=== PATIENT | male | born 1945 | race Asian ===

== ENCOUNTER 2020-10-23 11:53 | Inpatient (IN) | payer MEDICARE, OTHER ==
[~2020-10-23] VITALS: Ht 172.7 cm; Wt 59.0 kg
--- NOTE | 2020-10-23 12:05 | NUR ---
DR. COLLAZO @ BS FOR EVAL.
[2020-10-23] MEDS ORDERED: ACETAMINOPHEN 650 MG/SUPP.RECT RC ONE ×2 (12:30→12:40)
--- NOTE | 2020-10-23 12:36 | NUR ---
BIBRA60 FROM SNF FOR LOW O2 SAT 92-93% ON 6LPM PER EMS. +COVID 10/19/20. PT NON VERBAL, SOB. PLACED ON TRUCK MECHANIC APPRENTICE, SR. PLACED ON 02 4L, O2 SAT 95%. TEMP 100 RECTAL, AWARE. WILL CONT TO MONITOR.
[2020-10-23 12:45] LABS: ABG OXYGEN SATURATION 86.9 % (92.0-98.5); ABG PCO2 27.9 mmHg (35.0-45.0); ABG PH 7.421 (7.350-7.450); ABG PO2 54.6 mmHg (75.0-100.0); AaDO2 198.5 mmHg; COHb 0.7 % (0.5-1.5); MetHb 0.4 % (0.0-1.5); O2Hb 85.9 % (94.0-97.0); SITE, ABG Right Radial; VENT MODE, BG NC 5 L
[2020-10-23 12:50] LABS: BASOPHILS # (AUTO) 0.1 /CMM (0.0-0.2); BASOPHILS % (AUTO) 0.6 % (0.0-2.0); HEMATOCRIT 50 % (39-51); HEMOGLOBIN 16.5 g/dL (13.5-17.5); LYMPHOCYTES # (AUTO) 0.6 /CMM (0.8-4.8); MEAN CORPUSCULAR HGB CONC 33 g/dl (31.0-36.0); MEAN CORPUSCULAR VOLUME 87 fL (80-96); MONOCYTES # (AUTO) 0.5 /CMM (0.1-1.30); MONOCYTES % (AUTO) 3.6 % (2.0-12.0); NEUTROPHILS # (AUTO) 12.6 /CMM (1.8-8.9); NEUTROPHILS % (AUTO) 91.8 % (43.0-81.0); PLATELET COUNT (AUTO) 398 /CMM (150-450); RED BLOOD CELL COUNT(AUTO) 5.68 MIL/uL (4.5-6.0); WHITE BLOOD COUNT (AUTO) 13.8 K/uL (4.3-11.0)
[2020-10-23] MEDS ORDERED: FENO160T PO (12:51)
[2020-10-23] MEDS ORDERED: INSU100I4 SQ (12:51)
[2020-10-23] MEDS ORDERED: GLIP10TA11 PO (12:51)
[2020-10-23] MEDS ORDERED: OMEG100037 PO (12:51)
[2020-10-23] MEDS ORDERED: DORZ10DR13 EACHEYE (12:51)
[2020-10-23] MEDS ORDERED: INSU100I24 SQ ×2 (12:51)
[2020-10-23] MEDS ORDERED: METO50TA16 PO (12:51)
[2020-10-23] MEDS ORDERED: GLUC1KIT IJ (12:51)
[2020-10-23] MEDS ORDERED: DOCU-141 PO (12:51)
[2020-10-23] MEDS ORDERED: ACET325T53 PO (12:51)
[2020-10-23] MEDS ORDERED: AMLO10TA4 PO (12:51)
[2020-10-23] MEDS ORDERED: SERT25TA PO (12:51)
[2020-10-23] MEDS ORDERED: CHOL100045 PO (12:51)
[2020-10-23] MEDS ORDERED: TAMS-12 PO (12:51)
[2020-10-23] MEDS ORDERED: LISI-659 PO (12:51)
[2020-10-23] MEDS ORDERED: LATA2.5D15 OP (12:51)
[2020-10-23] MEDS ORDERED: GABA100C PO (12:51)
[2020-10-23] MEDS ORDERED: DEXAMETHASONE SOD PHOSPHATE 4 MG in IV D5W 50 ML IV ONE (13:00)
[2020-10-23 13:02] LABS: CALCIUM, SERUM 9.6 mg/dL (8.5-10.1); CARBON DIOXIDE 23 mmol/L (21-32); CHLORIDE 95 mmol/L (98-107); CREATININE 1.4 mg/dL (0.6-1.3); GLUCOSE 266 mg/dL (74-106); POTASSIUM 4.5 mmol/L (3.5-5.1); SODIUM SERUM 129 mmol/L (136-145); UREA NITROGEN, BLOOD 39 mg/dL (7-18)
[2020-10-23 13:13] LABS: BILIRUBIN,URINE SMALL (NEGATIVE); BLOOD, URINE TRACE-INTA Ery/uL (NEGATIVE); COLOR,URINE DARK YELLOW (YELLOW); LEUKOCYTE ESTERASE ,URINE NEGATIVE (NEGATIVE); NITRITE, URINE NEGATIVE (NEGATIVE); PROTEIN,URINE 100 mg/dl (NEGATIVE); UGLUCOSE 250 MG/DL mg/dL (NEGATIVE)
[2020-10-23 13:17] LABS: ALANINE AMINOTRANSFERASE 24 U/L (12-78); ALBUMIN 2.9 g/dL (3.4-5.0); ALKALINE PHOSPHATASE 65 U/L (46-116); ASPARTATE AMINOTRANSFERASE 38 U/L (15-37); B-TYPE NATRIURETIC PEPTIDE 699 PG/ML (0-125); TOTAL PROTEIN, SERUM 8.5 g/dL (6.4-8.2)
[2020-10-23 13:19] LABS: CREATINE KINASE, TOTAL 102 U/L (39-308); FERRITIN 697 ng/mL (8-388)
[2020-10-23 13:23] LABS: D-DIMER 1.17 mg/L(FEU (0.17-0.50)
[2020-10-23] MEDS ORDERED: PIPERACILLIN /TAZOBACTAM 3.375 G in IV D5W 50 ML IV ONE (13:30)
[2020-10-23] MEDS ORDERED: AZITHROMYCIN 500 MG in IV D5W 250 ML IV ONE (13:30)
[2020-10-23 13:41] LABS: BACTERIA,URINE Few /HPF (None Seen); RBC,URINE 0-2 /HPF (0-2); SQUAMOUS EPITHELIAL CELL,UR None Seen /HPF (None Seen); WBC,URINE 0-2 /HPF (0-3)
[2020-10-23 13:43] LABS: C-REACTIVE PROTEIN 36.4 mg/dL (0.0-0.9)
[2020-10-23] MEDS ORDERED: DEXAMETHASONE SOD PHOSPHATE 4 MG/ML VIAL ONE (14:12)
--- NOTE | 2020-10-23 14:28 | NUR ---
PT ON HI JESSICA OXYGEN 30ML 70%. O2 SAT 96%. PT STABLE, RR EVEN & UNLABORED. NO ACCESSORY MUSCLE USAGE. PT COMFORTABLY SLEEPING & WILL CONT TO MONITOR.
[2020-10-23] MEDS ORDERED: DEXAMETHASONE SOD PHOSPHATE 4 MG/ML VIAL IV ONE (14:30)
--- NOTE | 2020-10-23 14:45 | NUR ---
CALLED NURSING SUP FOR ICU BED.
[2020-10-23] MEDS ORDERED: ZOLPIDEM TARTRATE 5 MG TABLET PO PRN (16:30)
[2020-10-23] MEDS ORDERED: HYDROCODONE/APAP 5/325MG TABLET PO PRN (16:30)
[2020-10-23] MEDS ORDERED: MAGNESIUM HYDROXIDE 30 ML UDC PO PRN (16:30)
[2020-10-23] MEDS ORDERED: ACETAMINOPHEN 325 MG TABLET PO PRN (16:30)
[2020-10-23] MEDS ORDERED: Z GUARD REMEDY 2 OZ OINT TP PRN (16:30)
[2020-10-23] MEDS ORDERED: ONDANSETRON HCL/PF 4 MG/2 ML VIAL IVP PRN (16:30)
[2020-10-23] MEDS ORDERED: MAG HYDROX/AL HYDROX/SIMETH 30 ML UDC PO PRN (16:30)
[2020-10-23] MEDS ORDERED: PIPERACILLIN /TAZOBACTAM 3.375 G VIAL IV ONE (16:32)
--- NOTE | 2020-10-23 16:51 | NUR ---
PT RESTING, EASILY AWAKEN BY VERBAL STIMULI & WILL GO BACK TO SLEEP. RR EVEN & UNLABORED. ON TELE NSR. WILL CONT TO MONITOR.
[2020-10-23] MEDS: DOCUSATE SODIUM 100 MG CAPSULE PO SCH (17:00)
--- NOTE | 2020-10-23 20:54 | NUR ---
REPORT GIVEN TO JENNA DOTSON FOR FLEX.
[2020-10-23] MEDS: Fenofibrate 48 MG TABLET PO SCH (22:00)
[2020-10-24] VITALS: BP 132/82
[2020-10-24] MEDS: GABAPENTIN 100 MG CAPSULE PO SCH ×3 (02:17→19:06)
[2020-10-24] MEDS: TAMSULOSIN 0.4 MG CAP.SR.24H PO SCH ×2 (02:18→21:26)
[2020-10-24] MEDS: LATANOPROST EYE DROP 0.005% 2.5 ML BOTTLE OP SCH ×2 (02:18→21:53)
[2020-10-24] MEDS: IPRATROPIUM/ALBUTEROL INHALER IH SCH ×4 (02:19→19:06)
[2020-10-24] MEDS: APIXABAN 2.5 MG TABLET PO SCH ×3 (02:32→20:52)
[2020-10-24 04:00] VITALS: BP 126/75
--- NOTE | 2020-10-24 04:33 | NUR ---
RN notes Admitted a 75 year old macanese male from ER via stretcher with Diagnosis of Covid 19/acute hypoxic respiratory failure. Alert and oriented, verbally able to communicate needs. Speech was slow. Takes a long time to answer a question. Cooperative. No skin issues. On 30lpm high flow at 70% tolerating well O2sat of 95%. No complaint of pain or discomfort. Needs attended. Kept clean and dry. Will endorse to next shift for continuity of care.
[2020-10-24 07:55] LABS: BASOPHILS % (AUTO) 0.1 % (0.0-2.0); HEMATOCRIT 41 % (39-51); HEMOGLOBIN 13.9 g/dL (13.5-17.5); LYMPHOCYTES # (AUTO) 0.4 /CMM (0.8-4.8); LYMPHOCYTES % (AUTO) 3.1 % (20.0-44.0); MEAN CORPUSCULAR HGB CONC 34 g/dl (31.0-36.0); MEAN CORPUSCULAR VOLUME 87 fL (80-96); MONOCYTES # (AUTO) 0.6 /CMM (0.1-1.30); MONOCYTES % (AUTO) 4.5 % (2.0-12.0); NEUTROPHILS # (AUTO) 11.5 /CMM (1.8-8.9); NEUTROPHILS % (AUTO) 92.3 % (43.0-81.0); PLATELET COUNT (AUTO) 392 /CMM (150-450); RED BLOOD CELL COUNT(AUTO) 4.77 MIL/uL (4.5-6.0); WHITE BLOOD COUNT (AUTO) 12.5 K/uL (4.3-11.0)
[2020-10-24 08:00] VITALS: BP 148/88
--- NOTE | 2020-10-24 08:00 | NUR ---
insurance plan specialist AM notes Received pt alert,awake and confused, verbally able to communicate needs. Speech was slow. Takes a long time to answer a question. Cooperative. No skin issues. On 30lpm high flow at 70% tolerating well O2sat of 98%. Pt has episodes of pulling out his O2 tubing tending to desatuirate to 85% inspite of explaining the risks and benefits. Pt continues to pull out his O2. Reapply pt's O2 tubing as needed.No complaints of pain or discomfort. Turned every two hrs.Kept clean and dry.
[2020-10-24 08:42] LABS: CALCIUM, SERUM 8.8 mg/dL (8.5-10.1); CARBON DIOXIDE 24 mmol/L (21-32); CHLORIDE 97 mmol/L (98-107); CREATININE 1.4 mg/dL (0.6-1.3); GLUCOSE 295 mg/dL (74-106); MAGNESIUM 2.1 mg/dL (1.8-2.4); PHOSPHORUS 4.3 mg/dL (2.5-4.9); POTASSIUM 4.5 mmol/L (3.5-5.1); SODIUM SERUM 132 mmol/L (136-145); UREA NITROGEN, BLOOD 50 mg/dL (7-18)
[2020-10-24 09:19] LABS: CHOLESTEROL 124 mg/dL (<200); HDL CHOLESTEROL 29 mg/dL (40-60); LDL 69 mg/dL (0-99); THYROID STIMULATING HORMONE 0.303 uIU/mL (0.358-3.74); TRIGLYCERIDES 193 mg/dL (30-150)
[2020-10-24] MEDS: glipiZIDE 10 MG TABLET PO SCH ×2 (11:17→19:05)
[2020-10-24] MEDS: SERTRALINE HCL 25 MG TABLET PO SCH (11:17)
[2020-10-24] MEDS: CHOLECALCIFEROL 1,000 UNIT TABLET (VIT D3) PO SCH (11:17)
[2020-10-24] MEDS: DOCUSATE SODIUM 100 MG CAPSULE PO SCH ×2 (11:17→19:05)
[2020-10-24] MEDS: DEXAMETHASONE SOD PHOSPHATE 4 MG/ML VIAL IV SCH (11:18)
[2020-10-24] MEDS: AMLODIPINE BESYLATE 10 MG TABLET PO SCH (11:18)
[2020-10-24] MEDS: TIMOLOL MAL/DORZOLAM HCL OPHTH 10 ML BOTTLE EACHEYE SCH ×2 (11:31→21:52)
[2020-10-24 12:00] VITALS: BP 151/83
[2020-10-24 12:59] LABS: C-REACTIVE PROTEIN 30.1 mg/dL (0.0-0.9)
[2020-10-24] MEDS: CEFEPIME 2 GM in IV D5W 100 ML IV SCH (14:42)
[2020-10-24 16:00] VITALS: BP 151/82
--- NOTE | 2020-10-24 19:00 | NUR ---
PT RESTING IN BED WITH O2 HIGH FLOW AT 30 LITERS.WITH O2 SAT 98%.DENIES ANY PAIN OR DISTRESS.TURNED EVERY TWO HRS.
--- NOTE | 2020-10-24 19:20 | NUR ---
RN NOTES RECEIVED PT IN BED RESTING COMFORTABLY, A/OX2-3, IN NO SIGN OF RESPIRATORY DISTRESS. ON 30L O2 VIA HIGH FLOW;NC ; TOLERATING WELL. IV SITE/ACCESS; PATENT AND FLUSHING WELL.BILATERAL SOFT WRIST RESTRAINTS IN PLACE, ASSESSED PER PROTOCOL.SAFETY MEASURES HAVE BEEN PROVIDED AND IMPLEMENTED. PATIENT BED ALARM IS ON. HEAD OF BED ELEVATED. BED IS LOCKED, IN LOWEST POSITION AND SIDE RAILS UP. CALL LIGHT WITHIN REACH OF THE PATIENT. APPLICABLE ISOLATION PRECAUTIONS IN PLACE. WILL CONTINUE TO MONITOR AND REASSESS FOR ANY CHANGES AND WILL CARRY OUT ANY ONGOING AND ACTIVE MD ORDER.
[2020-10-24 20:00] VITALS: BP 159/90
[2020-10-24] MEDS: DOXYCYCLINE HYCLATE (100 MG) 100 MG TABLET PO SCH (20:51)
--- NOTE | 2020-10-24 21:29 | NUR ---
RN NOTES TRICOR/ FENOFIBRATE NOT GIVEN BY PREVIOUS SHIFT, (10.23.2020), CANVAS CUTTER MADE AWARE. WILL ADMINISTER MEDS DUE FOR 2199 TODAY 10.24.2020.
[2020-10-24] MEDS: Fenofibrate 48 MG TABLET PO SCH (21:32)
--- NOTE | 2020-10-24 23:00 | NUR ---
RN NOTES NO CHANGE IN PATIENT CONDITION AT THIS TIME PATIENT VITALS STABLE, NO SIGNS OF ACUTE RESPIRATORY DISTRESS. DIGITAL EXPERIENCE MANAGER MADE AWARE. WILL CONTINUE TO MONITOR AND REASSESS FOR ANY CHANGES THROUGHOUT THE SHIFT.
[2020-10-25] VITALS: BP 157/84
[2020-10-25] MEDS: CEFEPIME 2 GM in IV D5W 100 ML IV SCH ×2 (02:36→13:54)
[2020-10-25 04:00] VITALS: BP 145/80
--- NOTE | 2020-10-25 04:00 | NUR ---
RN NOTES PATIENT REMAINS IN NO ACUTE RESPIRATORY DISTRESS AT THIS TIME, NO CHANGES TO CONDITION/STATUS. SPECIAL INVESTIGATION UNIT INVESTIGATOR WELL AWARE. WILL CONTINUE TO MONITOR AND REASSESS FOR ANY CHANGES THROUGHOUT THE SHIFT
--- NOTE | 2020-10-25 07:20 | NUR ---
RN NOTES PATIENT REMAINS IN ROOM IN NO SIGNS OF RESPIRATORY DISTRESS. PATIENT SATURATING 94% OF 02 AT THE TIME OF ENDORSEMENT/CHANGE OF SHIFT. VITAL SIGNS WNL. IV LINE MAINTAINED, INTACT, PATENT AND FLUSHING, NO SITE REDNESS OR INFILTRATION. SAFETY PRECAUTIONS IN PLACE AND COMFORT MEASURES RENDERED. BED IN LOWEST POSITION, CALL LIGHT WITHIN REACH, BREAKS ON, SIDE RAILS UP. ALL NEEDS ATTENDED, MEDICATIONS GIVEN SCHEDULED AND ORDERED ; SHIFT ASSESSMENT/BEDBATH/SKIN CARE DONE. PATIENT KEPT CLEAN AND DRY. WILL ENDORSE TO INCOMING SHIFT FOR FLEX WITH ALL PERTINENT INFO REGARDING PATIENT STATUS.
--- NOTE | 2020-10-25 07:30 | NUR ---
RN OPENING NOTE PATIENT CURRENTLY IN BED SLEEPING. A/O X1-2; CONFUSED. PATIENT CURRENTLY ON 30L HIGH LOW OXYGEN, OXYGEN SATURATION 97%. NO S/S OF DISTRESS AT THIS TIME. PATIENT DENIES PAIN AT THIS TIME. TELE MONITOR READING SHOWS SINUS RHYTHM AT THIS TIME. R AC 20 G INTACT AND PATENT, NO S/S OF INFECTION AT THIS TIME. ALL SAFETY MEASURES IN PLACE PER HOSPITAL POLICY. BED LOCKED IN LOWEST POSITION, CALL LIGHT WITHIN REACH. WILL CONTINUE TO MONITOR AND PROVIDE CARE.
[2020-10-25 08:00] VITALS: BP 151/92
[2020-10-25 08:19] LABS: BASOPHILS % (AUTO) 0.2 % (0.0-2.0); HEMATOCRIT 48 % (39-51); LYMPHOCYTES # (AUTO) 0.4 /CMM (0.8-4.8); LYMPHOCYTES % (AUTO) 3.2 % (20.0-44.0); MEAN CORPUSCULAR HGB CONC 34 g/dl (31.0-36.0); MEAN CORPUSCULAR VOLUME 87 fL (80-96); MONOCYTES # (AUTO) 0.8 /CMM (0.1-1.30); MONOCYTES % (AUTO) 6.8 % (2.0-12.0); NEUTROPHILS # (AUTO) 11.1 /CMM (1.8-8.9); NEUTROPHILS % (AUTO) 89.8 % (43.0-81.0); PLATELET COUNT (AUTO) 509 /CMM (150-450); RED BLOOD CELL COUNT(AUTO) 5.49 MIL/uL (4.5-6.0); WHITE BLOOD COUNT (AUTO) 12.4 K/uL (4.3-11.0)
[2020-10-25 08:54] LABS: D-DIMER 1.66 mg/L(FEU (0.17-0.50)
[2020-10-25] MEDS: TIMOLOL MAL/DORZOLAM HCL OPHTH 10 ML BOTTLE EACHEYE SCH ×2 (08:56→20:21)
[2020-10-25] MEDS: IPRATROPIUM/ALBUTEROL INHALER IH SCH ×3 (08:56→19:30)
[2020-10-25] MEDS: SERTRALINE HCL 25 MG TABLET PO SCH (08:57)
[2020-10-25] MEDS: GABAPENTIN 100 MG CAPSULE PO SCH ×2 (08:57→17:04)
[2020-10-25] MEDS: DOXYCYCLINE HYCLATE (100 MG) 100 MG TABLET PO SCH ×2 (08:57→20:22)
[2020-10-25] MEDS: DOCUSATE SODIUM 100 MG CAPSULE PO SCH ×2 (08:57→17:04)
[2020-10-25] MEDS: CHOLECALCIFEROL 1,000 UNIT TABLET (VIT D3) PO SCH (08:57)
[2020-10-25] MEDS: glipiZIDE 10 MG TABLET PO SCH ×2 (08:57→17:04)
[2020-10-25] MEDS: DEXAMETHASONE SOD PHOSPHATE 4 MG/ML VIAL IV SCH (08:57)
[2020-10-25] MEDS: AMLODIPINE BESYLATE 10 MG TABLET PO SCH (09:05)
[2020-10-25] MEDS: APIXABAN 2.5 MG TABLET PO SCH ×2 (09:06→20:25)
[2020-10-25 09:46] LABS: CALCIUM, SERUM 9.5 mg/dL (8.5-10.1); CARBON DIOXIDE 26 mmol/L (21-32); CHLORIDE 100 mmol/L (98-107); CREATININE 1.5 mg/dL (0.6-1.3); MAGNESIUM 2.3 mg/dL (1.8-2.4); PHOSPHORUS 2.9 mg/dL (2.5-4.9); POTASSIUM 4.2 mmol/L (3.5-5.1); SODIUM SERUM 132 mmol/L (136-145); UREA NITROGEN, BLOOD 50 mg/dL (7-18)
[2020-10-25 09:50] LABS: GLUCOSE 371 mg/dL (74-106)
[2020-10-25 10:56] LABS: CREATINE KINASE, TOTAL 262 U/L (39-308); FERRITIN 779 ng/mL (8-388)
[2020-10-25 12:00] VITALS: BP 144/95
[2020-10-25 16:00] VITALS: BP 149/87
--- NOTE | 2020-10-25 18:54 | NUR ---
RN CLOSING NOTE PATIENT CURRENTLY IN BED, RESTING. A/O X1-2; CONFUSED. PATIENT CURRENTLY ON 30L HIGH LOW OXYGEN, OXYGEN SATURATION 98%. NO S/S OF DISTRESS AT THIS TIME. PATIENT DENIES PAIN AT THIS TIME. TELE MONITOR READING SHOWS SINUS RHYTHM AT THIS TIME. R AC 20 G INTACT AND PATENT, NO S/S OF INFECTION AT THIS TIME. ALL SAFETY MEASURES IN PLACE PER HOSPITAL POLICY. BED LOCKED IN LOWEST POSITION, CALL LIGHT WITHIN REACH. WILL ENDORSE TO DRY CELL AND BATTERY ASSEMBLER NURSE FOR FLEX.
--- NOTE | 2020-10-25 19:40 | NUR ---
RN OPENING NOTE RECEIVED PATIENT IN BED RESTING ALERT ORIENTED X1 OPEN EYES,NONVERBAL ON HIGH FLOW OXYGEN 30L/MIN O2:96% R/O FOR COVID ON MONITORING FOR DROPLET/CONTACT ISOLATION,INCONTINENT TO BOWEL/BLADDER,IV SITE IS ON RIGHT AC #20,NON COMPLIANCE WITH OXYGEN KEEP TAKE IT OUT,BED IN LOW POSITION AND LOCKED,CALL LIGHT WITHIN REACH,BED ALARM IS ON,CONTINUE TO MONITOR
[2020-10-25 20:00] VITALS: BP 158/109
[2020-10-25 20:03] LABS: C-REACTIVE PROTEIN 24.3 mg/dL (0.0-0.9)
[2020-10-25] MEDS: LATANOPROST EYE DROP 0.005% 2.5 ML BOTTLE OP SCH (21:28)
[2020-10-25] MEDS: TAMSULOSIN 0.4 MG CAP.SR.24H PO SCH (21:30)
[2020-10-25] MEDS: Fenofibrate 48 MG TABLET PO SCH (21:31)
[2020-10-26] VITALS: BP 159/98
[2020-10-26] MEDS: CEFEPIME 2 GM in IV D5W 100 ML IV SCH ×2 (01:45→14:20)
[2020-10-26] MEDS: IPRATROPIUM/ALBUTEROL INHALER IH SCH ×4 (01:51→20:16)
[2020-10-26 04:00] VITALS: BP 158/99
[2020-10-26 06:37] LABS: BASOPHILS % (AUTO) 0.2 % (0.0-2.0); EOSINOPHILS % (AUTO) 0.3 % (0.0-6.0); HEMATOCRIT 50 % (39-51); HEMOGLOBIN 16.7 g/dL (13.5-17.5); LYMPHOCYTES # (AUTO) 0.5 /CMM (0.8-4.8); MEAN CORPUSCULAR HGB CONC 33 g/dl (31.0-36.0); MEAN CORPUSCULAR VOLUME 88 fL (80-96); MONOCYTES # (AUTO) 0.8 /CMM (0.1-1.30); MONOCYTES % (AUTO) 8.4 % (2.0-12.0); NEUTROPHILS # (AUTO) 8.4 /CMM (1.8-8.9); NEUTROPHILS % (AUTO) 86.1 % (43.0-81.0); PLATELET COUNT (AUTO) 509 /CMM (150-450); RED BLOOD CELL COUNT(AUTO) 5.73 MIL/uL (4.5-6.0); WHITE BLOOD COUNT (AUTO) 9.7 K/uL (4.3-11.0)
--- NOTE | 2020-10-26 06:48 | NUR ---
RN CLOSING NOTE PATIENT REMAINS ON ALERT ORIENTED X1 NONVERBAL,ON HIGH FLOW OXYGEN 30L/MIN NON COMPLIANCE WITH OXYGEN ,O2:97% IV SITE IS ON RIGHT AC INTACT FLUSHED,ALL DUE MEDS GIVEN MD ORDERED KEPT CLEAN AND DRY ALL THE TIME,KEPT COMFORTABLE,ENDORSE NEXT COMING SHIFT FOR CONTINUATION OF CARE.
[2020-10-26 07:15] LABS: ALBUMIN 2.9 g/dL (3.4-5.0); BILIRUBIN,TOTAL 0.7 mg/dL (0.2-1.0); CALCIUM, SERUM 10.1 mg/dL (8.5-10.1); CREATININE 1.3 mg/dL (0.6-1.3); MAGNESIUM 2.3 mg/dL (1.8-2.4); PHOSPHORUS 3.6 mg/dL (2.5-4.9); POTASSIUM 4.4 mmol/L (3.5-5.1); TOTAL PROTEIN, SERUM 8.8 g/dL (6.4-8.2)
--- NOTE | 2020-10-26 07:30 | NUR ---
RN OPENING NOTE PATIENT CURRENTLY IN BED SLEEPING. A/O X1-2; CONFUSED. PATIENT CURRENTLY ON 30L HIGH LOW OXYGEN, OXYGEN SATURATION 94%. NO S/S OF DISTRESS AT THIS TIME. PATIENT DENIES PAIN AT THIS TIME. TELE MONITOR READING SHOWS SINUS RHYTHM AT THIS TIME. R AC 20 G INTACT AND PATENT, NO S/S OF INFECTION AT THIS TIME. ALL SAFETY MEASURES IN PLACE PER HOSPITAL POLICY. BED LOCKED IN LOWEST POSITION, CALL LIGHT WITHIN REACH. WILL CONTINUE TO MONITOR AND PROVIDE CARE
[2020-10-26 08:00] VITALS: BP 164/102
[2020-10-26] MEDS: CHOLECALCIFEROL 1,000 UNIT TABLET (VIT D3) PO SCH (09:30)
[2020-10-26] MEDS: DOCUSATE SODIUM 100 MG CAPSULE PO SCH ×2 (09:30→17:10)
[2020-10-26] MEDS: DEXAMETHASONE SOD PHOSPHATE 4 MG/ML VIAL IV SCH (09:30)
[2020-10-26] MEDS: GABAPENTIN 100 MG CAPSULE PO SCH ×2 (09:30→17:10)
[2020-10-26] MEDS: glipiZIDE 10 MG TABLET PO SCH ×2 (09:30→17:10)
[2020-10-26] MEDS: DOXYCYCLINE HYCLATE (100 MG) 100 MG TABLET PO SCH ×2 (09:30→20:22)
[2020-10-26] MEDS: SERTRALINE HCL 25 MG TABLET PO SCH (09:31)
[2020-10-26] MEDS: AMLODIPINE BESYLATE 10 MG TABLET PO SCH (09:31)
[2020-10-26] MEDS: APIXABAN 2.5 MG TABLET PO SCH ×2 (09:31→20:24)
[2020-10-26] MEDS: TIMOLOL MAL/DORZOLAM HCL OPHTH 10 ML BOTTLE EACHEYE SCH ×2 (09:34→20:19)
[2020-10-26 12:00] VITALS: BP 159/96
[2020-10-26 16:00] VITALS: BP 122/83
[2020-10-26] MEDS ORDERED: DEXTROSE 50%-WATER 50 ML DISP.SYRIN IV PRN (16:00)
[2020-10-26] MEDS: INSULIN REGULAR, HUMAN 100 UNIT/ML 3 ML VIAL SQ PRN ×2 (17:10→22:04)
[2020-10-26] MEDS: BLOOD SUGAR DIAGNOSTIC 1 EACH STRIP IN SCH ×2 (17:11→21:42)
--- NOTE | 2020-10-26 19:45 | NUR ---
RN OPENING NOTE RECEIVED PATIENT IN BED RESTING ALERT ORIENTED X1 OPEN EYES,NONVERBAL ON HIGH FLOW OXYGEN 30L/MIN O2:96% R/O FOR COVID ON MONITORING FOR DROPLET/CONTACT ISOLATION,INCONTINENT TO BOWEL/BLADDER,IV SITE IS ON RIGHT AC INTACT PATENT ,NON COMPLIANCE WITH OXYGEN KEEP TAKE IT OUT,BED IN LOW POSITION AND LOCKED,CALL LIGHT WITHIN REACH,BED ALARM IS ON,CONTINUE TO MONITOR
[2020-10-26 20:00] VITALS: BP 155/94
[2020-10-26] MEDS: LATANOPROST EYE DROP 0.005% 2.5 ML BOTTLE OP SCH (21:19)
[2020-10-26] MEDS: TAMSULOSIN 0.4 MG CAP.SR.24H PO SCH (22:05)
[2020-10-26] MEDS: Fenofibrate 48 MG TABLET PO SCH (22:06)
[2020-10-27] VITALS: BP 172/113
--- NOTE | 2020-10-27 | NUR ---
RN NOTE PATIENT BP IS 172/113 AND HR IS 103 CALLED STOPPER GRINDER ALIRIO JAMES WITH NEW ORDER HYDRALAZINE 10 MG IV EVERY 4 HOURS NEEDED IF SBP>170 NOTED AND CARRIED OUT.
[2020-10-27] MEDS ORDERED: hydrALAZINE HCL IV 20 MG VIAL IV PRN (01:00)
[2020-10-27] MEDS: CEFEPIME 2 GM in IV D5W 100 ML IV SCH ×2 (01:48→14:27)
--- NOTE | 2020-10-27 02:00 | NUR ---
RN NOTE PATIENT BP IS 156/95 HR IS 102 CONTINUE TO MONITOR
[2020-10-27 04:00] VITALS: BP 156/95
--- NOTE | 2020-10-27 07:15 | NUR ---
RN CLOSING NOTE PATIENT REMAINS ON ALERT ORIENTED X1 OPEN EYES ON HIGH FLOW OXYGEN 30L O2:98%, NO SOB NOT ACUT IV SITE IS ON RIGHT AC INTACT PATENT INCONTINENT TO BOWL/BLADDER ALL DUE MEDS GIVEN MD ORDERED,KEPT CLEAN AND DRY ALL THE TIME,KEPT COMFORTABLE,ALL NEED MET ENDORSE NEXT COMING SHIFT FOR CONTINUATION OF CARE.
[2020-10-27] MEDS: IPRATROPIUM/ALBUTEROL INHALER IH SCH ×3 (07:35→19:30)
[2020-10-27 08:00] VITALS: BP 175/94
[2020-10-27] MEDS: BLOOD SUGAR DIAGNOSTIC 1 EACH STRIP IN SCH ×4 (08:09→21:48)
[2020-10-27] MEDS: CHOLECALCIFEROL 1,000 UNIT TABLET (VIT D3) PO SCH (08:09)
[2020-10-27] MEDS: GABAPENTIN 100 MG CAPSULE PO SCH ×2 (08:09→16:51)
[2020-10-27] MEDS: glipiZIDE 10 MG TABLET PO SCH ×2 (08:10→17:28)
[2020-10-27] MEDS: DOCUSATE SODIUM 100 MG CAPSULE PO SCH ×2 (08:11→16:51)
[2020-10-27] MEDS: APIXABAN 2.5 MG TABLET PO SCH ×2 (08:11→21:42)
[2020-10-27] MEDS: DOXYCYCLINE HYCLATE (100 MG) 100 MG TABLET PO SCH ×2 (08:11→21:43)
[2020-10-27] MEDS: SERTRALINE HCL 25 MG TABLET PO SCH (08:11)
[2020-10-27] MEDS: DEXAMETHASONE SOD PHOSPHATE 4 MG/ML VIAL IV SCH (08:12)
[2020-10-27] MEDS: INSULIN REGULAR, HUMAN 100 UNIT/ML 3 ML VIAL SQ PRN ×3 (08:13→17:34)
[2020-10-27] MEDS: AMLODIPINE BESYLATE 10 MG TABLET PO SCH (08:46)
[2020-10-27] MEDS: TIMOLOL MAL/DORZOLAM HCL OPHTH 10 ML BOTTLE EACHEYE SCH ×2 (09:37→21:40)
--- NOTE | 2020-10-27 11:14 | NUR ---
RN NOTE RT PLACED PATIENT ON NASAL CANNULA ON 6L. PATIENT DID NOT TOLERATE WELL. PATIENT WAS PLACED BACK ON HIGH FLOW OXYGEN AT 30L. MD IS AWARE.
--- NOTE | 2020-10-27 11:20 | NUR ---
RN OPENING NOTE PATIENT IS IN BED RESTING COMFORTABLE. PATIENT IN NO CUTE DISTRESS. PATIENT IS ON 30L HIGH FLOW OXYGEN, OXYGEN SATURATION IS 97%. PATIENT IS ON DELI SLICER READING SINUS TACH 112. PATIENT BED ALARM IS ON. SAFETY PRECAUTIONS ARE IN PLACE. PATIENT BED IS LOCKED AND IN LOWEST POSITION. CALL LIGHT WITHIN REACH. WILL CONTINUE TO MONITOR.
[2020-10-27 12:00] VITALS: BP 159/95
--- NOTE | 2020-10-27 13:29 | NUR ---
DOPE AND FABRIC WORKER NOTES PT'S BLOOD SUGAR BEFORE LUNCH IS 555, NO CHANGE IN LOC NOTED, INSULIN GIVEN PER SLIDING SCALE, DR. KOLB INFORMED, NEW ORDERS GIVEN, NOTED AND CARRIED OUT.
[2020-10-27 16:00] VITALS: BP 148/98
--- NOTE | 2020-10-27 18:53 | NUR ---
RN CLOSING NOTE PATIENT IS IN BED RESTING COMFORTABLY. PATIENT IS IN NO ACUTE DISTRESS. PATIENT IS ON HIGH FLOW OXYGEN AT 30L, WITH OXYGEN SATURATION AT 96%. PATIENT IS ON MARKETING SALES CONSULTANT READING SINUS TACH 115. PATIENT KEPT CLEAN, DRY AND COMFORTABLE THROUGHOUT THE SHIFT. PATIENT NEEDS WERE ADDRESSED. PATIENT BED IS LOCKED AND IN LOWEST POSITION. CALL LIGHT WITHIN REACH. ENDORSE TO THE DIRECTOR BIOLOGY NURSE FOR FLEX.
--- NOTE | 2020-10-27 19:53 | NUR ---
RT PT RECVD ON VAPOTHERM HFNC 30 LPM 70% FIO2 WITH SATURATION 98%. INSTRUCTED PATIENT ON HOW TO USE COMBIVENT IN HAITIAN, PT UNABLE TO DO MANEUVER FOR TX AT THIS TIME.
[2020-10-27 20:00] VITALS: BP 151/88
--- NOTE | 2020-10-27 20:00 | NUR ---
contour sander note Received in bed, a/o x1. Breathing even and unlabored with no sob or acute distress noted on 30Lpm of O2 via high flow NC. O2 saturation 98%. Denies any pain or discomfort. Iv site patent and intact. All needs rendered. Call light within reach. Repositioned q2h. Bed in lowest position. Will continue to monitor.
[2020-10-27] MEDS: LATANOPROST EYE DROP 0.005% 2.5 ML BOTTLE OP SCH (21:40)
[2020-10-27] MEDS: TAMSULOSIN 0.4 MG CAP.SR.24H PO SCH (21:42)
[2020-10-27] MEDS: Fenofibrate 48 MG TABLET PO SCH (21:43)
[2020-10-27] MEDS: *INSULIN REGULAR(HUMULIN R)HUM 100 UNIT/ML VIAL SQ PRN (21:51)
[2020-10-28] VITALS: BP 136/91
[2020-10-28] MEDS: IPRATROPIUM/ALBUTEROL INHALER IH SCH ×3 (01:30→12:46)
--- NOTE | 2020-10-28 01:37 | NUR ---
QUALITY ASSURANCE REPRESENTATIVE NOTE NOTIFIED DR. RAMÍREZ BILATERAL SOFT WRIST RESTRAINT IS EXPIRING . PT STILL NOTED WITH PULLING OUT HIGH FLOW O2. PER MD, "TAKE A TO AND PUT THE ORDER".
[2020-10-28] MEDS: CEFEPIME 2 GM in IV D5W 100 ML IV SCH ×2 (01:45→14:14)
[2020-10-28 04:00] VITALS: BP 151/85
[2020-10-28 06:29] LABS: BASOPHILS % (AUTO) 0.2 % (0.0-2.0); EOSINOPHILS % (AUTO) 0.2 % (0.0-6.0); HEMATOCRIT 49 % (39-51); HEMOGLOBIN 16.4 g/dL (13.5-17.5); LYMPHOCYTES # (AUTO) 0.8 /CMM (0.8-4.8); LYMPHOCYTES % (AUTO) 5.4 % (20.0-44.0); MEAN CORPUSCULAR HGB CONC 34 g/dl (31.0-36.0); MEAN CORPUSCULAR VOLUME 87 fL (80-96); MONOCYTES % (AUTO) 7.1 % (2.0-12.0); NEUTROPHILS # (AUTO) 12.3 /CMM (1.8-8.9); NEUTROPHILS % (AUTO) 87.1 % (43.0-81.0); PLATELET COUNT (AUTO) 614 /CMM (150-450); RED BLOOD CELL COUNT(AUTO) 5.61 MIL/uL (4.5-6.0); WHITE BLOOD COUNT (AUTO) 14.1 K/uL (4.3-11.0)
--- NOTE | 2020-10-28 06:30 | NUR ---
registered nurse cardiac telemetry closing note Patient in bed. Sleeping but easily arousable. Breathing even and unlabored with no sob or acute distress noted on 30L 70% FIO2 via high flow nasal cannula. O2 saturation 98%. Pt appears comfortable in bed. Bilateral soft wrist restraints in place for pulling out o2. Iv site patent and intact. All needs rendered. Bed in lowest position. Call light within reach. respositoned q2h. Will endorse to am nurse for continuity of care.
[2020-10-28 07:04] LABS: CALCIUM, SERUM 10.4 mg/dL (8.5-10.1); CARBON DIOXIDE 25 mmol/L (21-32); CHLORIDE 107 mmol/L (98-107); CREATININE 1.6 mg/dL (0.6-1.3); GLUCOSE 315 mg/dL (74-106); MAGNESIUM 2.7 mg/dL (1.8-2.4); POTASSIUM 4.6 mmol/L (3.5-5.1); SODIUM SERUM 144 mmol/L (136-145); UREA NITROGEN, BLOOD 63 mg/dL (7-18)
--- NOTE | 2020-10-28 07:45 | NUR ---
RN OPENING NOTE PATIENT IS IN BED RESTING COMFORTABLY. PATIENT IS IN NO ACUTE DISTRESS. PATIENT IS ON HIGH FLOW OXYGEN AT 30L, WITH OXYGEN SATURATION AT 96%. PATIENT IS ON LAY OUT CARPENTER READING SINUS TACH 115. SAFETY MEASUREMENTS ARE IMPLEMENTED PER HOSPITAL POLICY .BED IS LOCKED AND IN LOWEST POSITION. CALL LIGHT WITHIN REACH. WILL CONTINUE TO MONITOR
[2020-10-28 08:00] VITALS: BP 150/103
[2020-10-28] MEDS: glipiZIDE 10 MG TABLET PO SCH ×3 (08:00→17:04)
[2020-10-28] MEDS: BLOOD SUGAR DIAGNOSTIC 1 EACH STRIP IN SCH ×4 (08:17→23:11)
[2020-10-28] MEDS: INSULIN REGULAR, HUMAN 100 UNIT/ML 3 ML VIAL SQ PRN (08:20)
[2020-10-28] MEDS: DOXYCYCLINE HYCLATE (100 MG) 100 MG TABLET PO SCH ×2 (08:41→21:00)
[2020-10-28] MEDS: DEXAMETHASONE SOD PHOSPHATE 4 MG/ML VIAL IV SCH (08:41)
[2020-10-28] MEDS: GABAPENTIN 100 MG CAPSULE PO SCH ×3 (08:41→17:00)
[2020-10-28] MEDS: DOCUSATE SODIUM 100 MG CAPSULE PO SCH ×3 (08:41→17:00)
[2020-10-28] MEDS: CHOLECALCIFEROL 1,000 UNIT TABLET (VIT D3) PO SCH ×3 (08:41→17:32)
[2020-10-28] MEDS: SERTRALINE HCL 25 MG TABLET PO SCH (08:42)
[2020-10-28] MEDS: AMLODIPINE BESYLATE 10 MG TABLET PO SCH ×3 (08:42→17:31)
[2020-10-28] MEDS: APIXABAN 2.5 MG TABLET PO SCH ×2 (08:47→21:00)
--- NOTE | 2020-10-28 09:00 | NUR ---
JENNA NOTES PT HAS ALTERED MENTAL STATE NOT GOING TOO ADMIT MEDS Addendum: 10/28/20 at 1742 by ANDRESSA COOK RN FOR PT IN ROOM 108
[2020-10-28] MEDS: TIMOLOL MAL/DORZOLAM HCL OPHTH 10 ML BOTTLE EACHEYE SCH ×2 (09:20→21:00)
[2020-10-28 12:00] VITALS: BP 145/90
[2020-10-28] MEDS ORDERED: IV NS 0.9% 1,000 ML IV PRN (15:30)
[2020-10-28 16:00] VITALS: BP 146/90
--- NOTE | 2020-10-28 16:00 | NUR ---
JENNA NOTES PT'S MENTAL STATE IS ALTERED NOT GOING TO ADMINISTER PO MEDS Addendum: 10/28/20 at 1742 by ANDRESSA COOK RN FOR PT IN ROOM 108
--- NOTE | 2020-10-28 17:42 | NUR ---
JENNA NOTES ADMINISTERED ALL MEDS MADE MISTAKE WITH MY NOTES ROOM NUMBER 108 Addendum: 10/28/20 at 1747 by ANDRESSA COOK RN ADMINISTERED ALL MEDS FOR ROOM 106 BUT 108 NOT ADMINISTERED DUE TO MENTAL STATE
--- NOTE | 2020-10-28 19:32 | NUR ---
RN NOTES PT SEEMS HAVING A PROBLEM OF SWALLOWING INFORMED AMINA CORONEL OUTBOUND SALES EXECUTIVE. STATED WILL PUT HIM ON NPO AND OWILL ORDER SWALLOW EVAL
--- NOTE | 2020-10-28 19:55 | NUR ---
RN CLOSING NOTE PATIENT IS IN BED RESTING COMFORTABLY. PATIENT IS IN NO ACUTE DISTRESS. PATIENT IS ON HIGH FLOW OXYGEN AT 30L, WITH OXYGEN SATURATION AT 96%. PATIENT IS ON CHEMIST PROTEINS READING SINUS TACH 115. SAFETY MEASUREMENTS ARE IMPLEMENTED PER HOSPITAL POLICY .BED IS LOCKED AND IN LOWEST POSITION. CALL LIGHT WITHIN REACH. WILL ENDORSE TO PM NURSE FOR FLEX
[2020-10-28 20:00] VITALS: BP 150/98
[2020-10-28] MEDS: TAMSULOSIN 0.4 MG CAP.SR.24H PO SCH (21:22)
[2020-10-28] MEDS: FENOFIBRATE NANOCRYS (145 MG) 145 MG TABLET PO SCH (21:22)
[2020-10-28] MEDS: LATANOPROST EYE DROP 0.005% 2.5 ML BOTTLE OP SCH (21:24)
[2020-10-28] MEDS ORDERED: INSULIN GLARGINE, 100 UNIT/ML CARTRIDGE SQ SCH (22:00)
[2020-10-28] MEDS: *INSULIN REGULAR(HUMULIN R)HUM 100 UNIT/ML VIAL SQ PRN (22:36)
--- NOTE | 2020-10-28 22:55 | NUR ---
blood sugar is 591, [address] dawson notified, received an order from dr dawson to increase lantus from 8 unit to 20 unit.
[2020-10-28] MEDS: INSULIN GLARGINE, 100 UNIT/ML CARTRIDGE SQ SCH (23:28)
[2020-10-29] VITALS: BP 145/90
[2020-10-29 04:00] VITALS: BP 144/92
[2020-10-29 07:23] LABS: BASOPHILS % (AUTO) 0.2 % (0.0-2.0); EOSINOPHILS % (AUTO) 0.3 % (0.0-6.0); HEMATOCRIT 51 % (39-51); HEMOGLOBIN 16.7 g/dL (13.5-17.5); LYMPHOCYTES # (AUTO) 0.7 /CMM (0.8-4.8); LYMPHOCYTES % (AUTO) 4.7 % (20.0-44.0); MEAN CORPUSCULAR HGB CONC 33 g/dl (31.0-36.0); MEAN CORPUSCULAR VOLUME 89 fL (80-96); MONOCYTES # (AUTO) 1.1 /CMM (0.1-1.30); NEUTROPHILS # (AUTO) 13.2 /CMM (1.8-8.9); NEUTROPHILS % (AUTO) 87.8 % (43.0-81.0); PLATELET COUNT (AUTO) 593 /CMM (150-450); RED BLOOD CELL COUNT(AUTO) 5.72 MIL/uL (4.5-6.0)
--- NOTE | 2020-10-29 07:30 | NUR ---
TELE/RN OPENING NOTES RECEIVED PATIENT ON BED. PATIENT IN NO APPARENT RESPIRATORY DISTRESS NOTED. NO SIGN AND SYMPTOM OF PAIN NOTED. TELE MONITOR IN PLACED SINUS TACHY 107 BPM. WILL CONTINUE TO MONITOR.
--- NOTE | 2020-10-29 07:30 | NUR ---
RN NOTE PT STAYED STABLE, NO ACUTE CHANGES REPORT GIVEN TO INCOMING SHIFT FOR FLEX.
[2020-10-29 07:41] LABS: CALCIUM, SERUM 10.9 mg/dL (8.5-10.1); CARBON DIOXIDE 26 mmol/L (21-32); CHLORIDE 109 mmol/L (98-107); CREATININE 1.6 mg/dL (0.6-1.3); PHOSPHORUS 4.4 mg/dL (2.5-4.9); POTASSIUM 4.7 mmol/L (3.5-5.1); SODIUM SERUM 146 mmol/L (136-145); UREA NITROGEN, BLOOD 74 mg/dL (7-18)
[2020-10-29 07:53] LABS: GLUCOSE 403 mg/dL (74-106)
[2020-10-29 08:00] VITALS: BP 145/85
[2020-10-29] MEDS: BLOOD SUGAR DIAGNOSTIC 1 EACH STRIP IN SCH ×4 (08:04→23:10)
[2020-10-29] MEDS: AMLODIPINE BESYLATE 10 MG TABLET PO SCH (09:00)
[2020-10-29] MEDS: CHOLECALCIFEROL 1,000 UNIT TABLET (VIT D3) PO SCH (09:00)
[2020-10-29] MEDS: DOXYCYCLINE HYCLATE (100 MG) 100 MG TABLET PO SCH ×2 (09:00→22:54)
[2020-10-29] MEDS: APIXABAN 2.5 MG TABLET PO SCH ×2 (09:00→21:00)
[2020-10-29] MEDS: SERTRALINE HCL 25 MG TABLET PO SCH (09:00)
[2020-10-29 09:09] LABS: ALANINE AMINOTRANSFERASE 35 U/L (12-78); ALBUMIN 2.8 g/dL (3.4-5.0); ALKALINE PHOSPHATASE 95 U/L (46-116); ASPARTATE AMINOTRANSFERASE 32 U/L (15-37); BILIRUBIN,TOTAL 0.6 mg/dL (0.2-1.0); TOTAL PROTEIN, SERUM 8.4 g/dL (6.4-8.2)
[2020-10-29] MEDS: INSULIN REGULAR, HUMAN 100 UNIT/ML 3 ML VIAL SQ PRN ×3 (10:03→18:05)
[2020-10-29] MEDS: CEFEPIME 2 GM in IV D5W 100 ML IV SCH ×2 (10:05→14:07)
[2020-10-29] MEDS: TIMOLOL MAL/DORZOLAM HCL OPHTH 10 ML BOTTLE EACHEYE SCH ×2 (10:07→22:53)
[2020-10-29] MEDS: IPRATROPIUM/ALBUTEROL INHALER IH SCH ×3 (10:07→22:53)
[2020-10-29] MEDS: DEXAMETHASONE SOD PHOSPHATE 4 MG/ML VIAL IV SCH (10:08)
[2020-10-29 12:00] VITALS: BP 142/91
[2020-10-29 16:00] VITALS: BP 138/84
[2020-10-29] MEDS: DOCUSATE SODIUM 100 MG CAPSULE PO SCH ×2 (17:00→18:08)
[2020-10-29] MEDS: GABAPENTIN 100 MG CAPSULE PO SCH ×2 (17:00→18:09)
[2020-10-29] MEDS: glipiZIDE 10 MG TABLET PO SCH ×2 (18:00→18:07)
--- NOTE | 2020-10-29 19:06 | NUR ---
TELE/RN CLOSING NOTES PATIENT IS ON BED ALERT AND ORIENTED X2. PATIENT IN NO APPARENT RESPIRATORY DISTRESS NOTED. NO COMPLAINED OF PAIN. NOTED AT THIS TIME. IV ACCESS AT LEFT FOREARM WITH IV FLUID OF NS 1L 125ML/HR ON AND INFUSING WELL. TELE MONITOR IN PLACED SINUS TACHY 104 BPM. SEEN AND EXAMINED BY MD WITH ORDERS MADE AND CARRIED OUT. ALL DUE MEDICATIONS WAS GIVEN. SAFETY PRECAUTIONS WAS IN PLACED . SIDE RAILS UP X2. CALL LIGHT WITHIN REACH. WILL ENDORSED TO DRYWALL TAPER HELPER FOR FLEX.
[2020-10-29 20:00] VITALS: BP 126/85
[2020-10-29] MEDS: FENOFIBRATE NANOCRYS (145 MG) 145 MG TABLET PO SCH (22:00)
[2020-10-29] MEDS ORDERED: INSULIN GLARGINE, 100 UNIT/ML CARTRIDGE SQ SCH (22:00)
[2020-10-29] MEDS: TAMSULOSIN 0.4 MG CAP.SR.24H PO SCH (22:00)
[2020-10-29] MEDS: LATANOPROST EYE DROP 0.005% 2.5 ML BOTTLE OP SCH (23:09)
[2020-10-29] MEDS: INSULIN GLARGINE, 100 UNIT/ML CARTRIDGE SQ SCH (23:10)
[2020-10-29] MEDS: *INSULIN REGULAR(HUMULIN R)HUM 100 UNIT/ML VIAL SQ PRN (23:12)
[2020-10-30 00:25] VITALS: BP 144/89
[2020-10-30] MEDS: IPRATROPIUM/ALBUTEROL INHALER IH SCH ×3 (01:42→12:41)
[2020-10-30] MEDS: CEFEPIME 2 GM in IV D5W 100 ML IV SCH ×2 (01:44→13:59)
[2020-10-30] MEDS: IV 1/2NS 1000 ML 1,000 ML IV PRN ×2 (01:46→13:58)
[2020-10-30 04:00] VITALS: BP 149/97
[2020-10-30 06:42] LABS: BASOPHILS % (AUTO) 0.2 % (0.0-2.0); EOSINOPHILS % (AUTO) 0.5 % (0.0-6.0); HEMATOCRIT 51 % (39-51); HEMOGLOBIN 16.9 g/dL (13.5-17.5); LYMPHOCYTES # (AUTO) 0.9 /CMM (0.8-4.8); LYMPHOCYTES % (AUTO) 4.8 % (20.0-44.0); MEAN CORPUSCULAR HGB CONC 33 g/dl (31.0-36.0); MEAN CORPUSCULAR VOLUME 89 fL (80-96); MONOCYTES # (AUTO) 1.3 /CMM (0.1-1.30); MONOCYTES % (AUTO) 6.9 % (2.0-12.0); NEUTROPHILS # (AUTO) 16.2 /CMM (1.8-8.9); NEUTROPHILS % (AUTO) 87.6 % (43.0-81.0); PLATELET COUNT (AUTO) 631 /CMM (150-450); RED BLOOD CELL COUNT(AUTO) 5.76 MIL/uL (4.5-6.0); WHITE BLOOD COUNT (AUTO) 18.5 K/uL (4.3-11.0)
[2020-10-30 07:11] LABS: CALCIUM, SERUM 10.1 mg/dL (8.5-10.1); CARBON DIOXIDE 27 mmol/L (21-32); CHLORIDE 112 mmol/L (98-107); CREATININE 1.4 mg/dL (0.6-1.3); GLUCOSE 248 mg/dL (74-106); PHOSPHORUS 3.9 mg/dL (2.5-4.9); POTASSIUM 4.8 mmol/L (3.5-5.1); SODIUM SERUM 149 mmol/L (136-145); UREA NITROGEN, BLOOD 63 mg/dL (7-18)
[2020-10-30 07:35] LABS: MAGNESIUM 2.7 mg/dL (1.8-2.4)
[2020-10-30 08:00] VITALS: BP 157/95
[2020-10-30] MEDS: glipiZIDE 10 MG TABLET PO SCH ×2 (08:00→17:05)
[2020-10-30] MEDS: GABAPENTIN 100 MG CAPSULE PO SCH ×2 (08:06→17:05)
[2020-10-30] MEDS: DOCUSATE SODIUM 100 MG CAPSULE PO SCH ×2 (08:06→17:05)
[2020-10-30] MEDS: AMLODIPINE BESYLATE 10 MG TABLET PO SCH (08:06)
[2020-10-30] MEDS: APIXABAN 2.5 MG TABLET PO SCH ×2 (08:06→21:46)
[2020-10-30] MEDS: DOXYCYCLINE HYCLATE (100 MG) 100 MG TABLET PO SCH (08:07)
[2020-10-30] MEDS: SERTRALINE HCL 25 MG TABLET PO SCH (08:07)
[2020-10-30] MEDS: CHOLECALCIFEROL 1,000 UNIT TABLET (VIT D3) PO SCH (08:07)
--- NOTE | 2020-10-30 08:08 | NUR ---
TELE/RN OPENING NOTES RECEIVED PATIENT ON BED. PATIENT IN NO APPARENT RESPIRATORY DISTRESS NOTED. NO SIGN AND SYMPTOM OF PAIN NOTED. TELE MONITOR IN PLACED SINUS RHYTHM, SINUS TACHY 90 BPM. WILL CONTINUE TO MONITOR.
[2020-10-30] MEDS: BLOOD SUGAR DIAGNOSTIC 1 EACH STRIP IN SCH ×4 (08:41→22:11)
[2020-10-30] MEDS: DEXAMETHASONE SOD PHOSPHATE 4 MG/ML VIAL IV SCH (08:42)
[2020-10-30] MEDS: INSULIN REGULAR, HUMAN 100 UNIT/ML 3 ML VIAL SQ PRN ×3 (08:48→17:01)
[2020-10-30] MEDS: TIMOLOL MAL/DORZOLAM HCL OPHTH 10 ML BOTTLE EACHEYE SCH ×2 (08:49→22:11)
[2020-10-30 12:00] VITALS: BP 154/97
[2020-10-30 16:00] VITALS: BP 133/67
--- NOTE | 2020-10-30 19:35 | NUR ---
TELE/RN CLOSING NOTES PATIENT IS ON BED AWAKE ALERT AND ORIENTED X1. PATIENT IN NO APPARENT RESPIRATORY DISTRESS NOTED. NO SIGN AND SYMPTOM OF PAIN NOTED AT THIS TIME. SEEN AND EXAMINED BY MD WITH ORDERS MADE AND CARRIED OUT. ALL DUE MEDICATION WAS GIVE. ON TELE MONITOR READING SINUS JASMYN/SINUS TACHY. SAFETY PRECAUTIONS WAS IN PLACED. SIDE RAILS UP X 2. CALL LIGHT WITHIN REACH. WILL ENDORSED TO PHYSICIAN ASSISTANT PSYCHIATRY FOR FLEX.
[2020-10-30 20:00] VITALS: BP 136/90
--- NOTE | 2020-10-30 21:38 | NUR ---
IV REINSERTED BY JENNA FIELD ON THE RIGHT FOREARM G22.
[2020-10-30] MEDS: FENOFIBRATE NANOCRYS (145 MG) 145 MG TABLET PO SCH (21:45)
[2020-10-30] MEDS: TAMSULOSIN 0.4 MG CAP.SR.24H PO SCH (21:46)
[2020-10-30] MEDS: *INSULIN REGULAR(HUMULIN R)HUM 100 UNIT/ML VIAL SQ PRN (22:04)
[2020-10-30] MEDS: INSULIN GLARGINE, 100 UNIT/ML CARTRIDGE SQ SCH (22:07)
[2020-10-30] MEDS: LATANOPROST EYE DROP 0.005% 2.5 ML BOTTLE OP SCH (22:10)
[2020-10-31] VITALS: BP 111/74
[2020-10-31] MEDS: IV 1/2NS 1000 ML 1,000 ML IV PRN (03:41)
[2020-10-31 04:00] VITALS: BP 127/74
--- NOTE | 2020-10-31 07:34 | NUR ---
SEPHORA PRODUCT CONSULTANT OPENING NOTES RECEIVED PATIENT RESTING IN BED. A/O X 2-3, PATIENT IN NO APPARENT RESPIRATORY DISTRESS NO SIGN AND SYMPTOM OF PAIN OR DISCOMFORT NOTED. TELE MONITOR IN PLACED SINUS RHYTHM,HR IN THE 60'S]. BED AT LOWEST POSITION AND LOCKED WITH SIDE RAILS X2 , IV TO RT FA #22 RUNNING 1/2 NS @125 ML/HR, WILL CONTINUE TO MONITOR.
[2020-10-31 07:53] LABS: BASOPHILS % (AUTO) 0.2 % (0.0-2.0); EOSINOPHILS % (AUTO) 0.5 % (0.0-6.0); HEMATOCRIT 45 % (39-51); HEMOGLOBIN 14.9 g/dL (13.5-17.5); LYMPHOCYTES # (AUTO) 1.1 /CMM (0.8-4.8); LYMPHOCYTES % (AUTO) 7.1 % (20.0-44.0); MEAN CORPUSCULAR HGB CONC 33 g/dl (31.0-36.0); MEAN CORPUSCULAR VOLUME 89 fL (80-96); MONOCYTES # (AUTO) 1.1 /CMM (0.1-1.30); NEUTROPHILS # (AUTO) 13.8 /CMM (1.8-8.9); NEUTROPHILS % (AUTO) 85.2 % (43.0-81.0); PLATELET COUNT (AUTO) 466 /CMM (150-450); RED BLOOD CELL COUNT(AUTO) 5.11 MIL/uL (4.5-6.0); WHITE BLOOD COUNT (AUTO) 16.2 K/uL (4.3-11.0)
[2020-10-31 08:00] VITALS: BP 140/89
[2020-10-31 08:27] LABS: CALCIUM, SERUM 8.8 mg/dL (8.5-10.1); CARBON DIOXIDE 25 mmol/L (21-32); CHLORIDE 114 mmol/L (98-107); CREATININE 1.4 mg/dL (0.6-1.3); GLUCOSE 118 mg/dL (74-106); MAGNESIUM 2.5 mg/dL (1.8-2.4); PHOSPHORUS 4.3 mg/dL (2.5-4.9); POTASSIUM 4.5 mmol/L (3.5-5.1); SODIUM SERUM 148 mmol/L (136-145); UREA NITROGEN, BLOOD 64 mg/dL (7-18)
[2020-10-31] MEDS: BLOOD SUGAR DIAGNOSTIC 1 EACH STRIP IN SCH ×4 (08:28→22:04)
[2020-10-31 08:46] LABS: ABG BASE EXCESS -2.5 mmol/L; ABG OXYGEN SATURATION 98.1 % (92.0-98.5); ABG PCO2 33.6 mmHg (35.0-45.0); ABG PH 7.416 (7.350-7.450); ABG PO2 107.4 mmHg (75.0-100.0); AaDO2 283.4 mmHg; COHb 0.5 % (0.5-1.5); MetHb 0.1 % (0.0-1.5); O2Hb 97.5 % (94.0-97.0); SITE, ABG Right Radial; VENT MODE, BG HFNC 30LPM 60%O2
[2020-10-31] MEDS: TIMOLOL MAL/DORZOLAM HCL OPHTH 10 ML BOTTLE EACHEYE SCH ×2 (09:00→21:52)
[2020-10-31] MEDS: SERTRALINE HCL 25 MG TABLET PO SCH (10:26)
[2020-10-31] MEDS: CHOLECALCIFEROL 1,000 UNIT TABLET (VIT D3) PO SCH (10:26)
[2020-10-31] MEDS: AMLODIPINE BESYLATE 10 MG TABLET PO SCH (10:26)
[2020-10-31] MEDS: DOCUSATE SODIUM 100 MG CAPSULE PO SCH ×2 (10:27→17:05)
[2020-10-31] MEDS: DEXAMETHASONE SOD PHOSPHATE 4 MG/ML VIAL IV SCH (10:27)
[2020-10-31] MEDS: GABAPENTIN 100 MG CAPSULE PO SCH ×2 (10:27→17:05)
[2020-10-31] MEDS: APIXABAN 2.5 MG TABLET PO SCH ×2 (10:28→21:49)
[2020-10-31] MEDS: glipiZIDE 10 MG TABLET PO SCH ×2 (10:34→17:05)
[2020-10-31 12:00] VITALS: BP 144/81
[2020-10-31] MEDS: INSULIN REGULAR, HUMAN 100 UNIT/ML 3 ML VIAL SQ PRN ×2 (12:17→17:00)
--- NOTE | 2020-10-31 13:37 | NUR ---
RT PER DR GU, PLACE PT ON 10L MASK OR 6L NC TO WEAN FROM HFNC. PT PLACED ON 10L SIMPLE MASK WITH NO RESPIRATORY DISTRESS. HFNC AT BEDSIDE ON STANDBY.
[2020-10-31 16:00] VITALS: BP 108/73
--- NOTE | 2020-10-31 18:08 | NUR ---
PROPELLER ENGINEER CLOSING NOTES PATIENT RESTING IN BED. A/O X 2-3, PATIENT IN NO APPARENT RESPIRATORY DISTRESS NO SIGN AND SYMPTOM OF PAIN OR DISCOMFORT NOTED. TELE MONITOR IN PLACED SINUS RHYTHM,HR IN THE 60'S]. BED AT LOWEST POSITION AND LOCKED WITH SIDE RAILS X2 , IV TO RT FA #22 RUNNING 1/2 NS @125 ML/HR, WILL ENDORSE TO ONCOMING SHFIT
--- NOTE | 2020-10-31 19:30 | NUR ---
TELE/RN OPENING NOTES RECEIVED PATIENT RESTING IN BED. PATIENT IS ALERT AND ORIENTED X 3. NO SIGNS OF SOB OR RESPIRATORY DISTRESS NOTED. BREATHING IS EVEN AND UNLABORED. TELE READING SR. PATIENT IN NO SIGNS OF DISTRESS. PATIENT HAS IV ACCESS ON RIGHT FA #22 G RUNNING 1/2 NS AT 125 CC/HR. SAFETY MEASURES ARE IN PLACE, BED IS LOCKED AND PLACED IN THE LOW POSITION, SIDE RAILS UP X 3. CALL LIGHT IS WITHIN REACH. WILL MONITOR THROUGH OUT SHIFT.
[2020-10-31 20:00] VITALS: BP 134/83
[2020-10-31] MEDS: FENOFIBRATE NANOCRYS (145 MG) 145 MG TABLET PO SCH (21:46)
[2020-10-31] MEDS: TAMSULOSIN 0.4 MG CAP.SR.24H PO SCH (21:49)
[2020-10-31] MEDS: LATANOPROST EYE DROP 0.005% 2.5 ML BOTTLE OP SCH (22:05)
[2020-10-31] MEDS: INSULIN GLARGINE, 100 UNIT/ML CARTRIDGE SQ SCH (22:07)
[2020-11-01] VITALS: BP 123/84
[2020-11-01 04:00] VITALS: BP 124/73
[2020-11-01 06:06] LABS: BASOPHILS # (AUTO) 0.1 /CMM (0.0-0.2); BASOPHILS % (AUTO) 0.6 % (0.0-2.0); HEMATOCRIT 46 % (39-51); HEMOGLOBIN 15.2 g/dL (13.5-17.5); LYMPHOCYTES # (AUTO) 1.9 /CMM (0.8-4.8); LYMPHOCYTES % (AUTO) 11.4 % (20.0-44.0); MEAN CORPUSCULAR HGB CONC 33 g/dl (31.0-36.0); MEAN CORPUSCULAR VOLUME 88 fL (80-96); MONOCYTES # (AUTO) 1.4 /CMM (0.1-1.30); MONOCYTES % (AUTO) 8.7 % (2.0-12.0); NEUTROPHILS % (AUTO) 78.3 % (43.0-81.0); PLATELET COUNT (AUTO) 490 /CMM (150-450); RED BLOOD CELL COUNT(AUTO) 5.23 MIL/uL (4.5-6.0); WHITE BLOOD COUNT (AUTO) 16.6 K/uL (4.3-11.0)
[2020-11-01 06:19] LABS: CALCIUM, SERUM 9.2 mg/dL (8.5-10.1); CARBON DIOXIDE 27 mmol/L (21-32); CHLORIDE 110 mmol/L (98-107); CREATININE 1.2 mg/dL (0.6-1.3); GLUCOSE 93 mg/dL (74-106); MAGNESIUM 2.5 mg/dL (1.8-2.4); PHOSPHORUS 3.7 mg/dL (2.5-4.9); POTASSIUM 4.2 mmol/L (3.5-5.1); SODIUM SERUM 144 mmol/L (136-145); UREA NITROGEN, BLOOD 47 mg/dL (7-18)
--- NOTE | 2020-11-01 06:35 | NUR ---
TELE/RN CLOSING NOTES PATIENT RESTING IN BED. PATIENT IS ALERT AND ORIENTED X 1-2. NO SIGNS OF SOB OR RESPIRATORY DISTRESS NOTED. BREATHING IS EVEN AND UNLABORED. TELE READING SR. PATIENT IN NO SIGNS OF DISTRESS. PATIENT HAS IV ACCESS ON RIGHT FA #22 G RUNNING 1/2 NS AT 125 CC/HR. ALL NEEDS HAVE BEEN MET DURING SHIFT. SAFETY MEASURES ARE IN PLACE, BED IS LOCKED AND PLACED IN THE LOW POSITION, SIDE RAILS UP X 3. CALL LIGHT IS WITHIN REACH. WILL MONITOR THROUGH OUT SHIFT.
[2020-11-01] MEDS: IV 1/2NS 1000 ML 1,000 ML IV PRN (06:55)
--- NOTE | 2020-11-01 07:30 | NUR ---
RN OPENING NOTE PATIENT RESTING IN BED. PATIENT IS ALERT AND ORIENTED X 1-2. NO SIGNS OF SOB OR RESPIRATORY DISTRESS NOTED. BREATHING IS EVEN AND UNLABORED. PATIENT CURRENTLY ON HIGH FLOW OXYGEN VIA NASAL CANNULA AT 30L. OXYGEN SATURATION TELE READING SR. PATIENT IN NO SIGNS OF DISTRESS. PATIENT HAS IV ACCESS ON RIGHT FA #22 G RUNNING 1/2 NS AT 125 CC/HR. SAFETY MEASURES ARE IN PLACE, BED IS LOCKED AND PLACED IN THE LOW POSITION, SIDE RAILS UP X 3. HOB ELEVATED. CALL LIGHT IS WITHIN REACH. WILL CONTINUE TO MONITOR AND PROVIDE CARE. Addendum: 11/01/20 at 1053 by KENYA BONE RN *PLEASE DISREGARD PREVIOUS PATIENT RESTING IN BED. PATIENT IS ALERT AND ORIENTED X 1-2. NO SIGNS OF SOB OR RESPIRATORY DISTRESS NOTED. BREATHING IS EVEN AND UNLABORED. PATIENT CURRENTLY ON HIGH FLOW OXYGEN AT 30L. OXYGEN SATURATION 98%. TELE READING SR. PATIENT IN NO SIGNS OF DISTRESS. PATIENT HAS IV ACCESS ON RIGHT FA #22 G RUNNING 1/2 NS AT 125 CC/HR. SAFETY MEASURES ARE IN PLACE, BED IS LOCKED AND PLACED IN THE LOW POSITION, SIDE RAILS UP X 3. HOB ELEVATED. CALL LIGHT IS WITHIN REACH. WILL CONTINUE TO MONITOR AND PROVIDE CARE.
--- NOTE | 2020-11-01 07:40 | NUR ---
PATIENT'S GLUCOSE LEVEL CHECKED, TO BE 44MG/DL. IV DEXTROSE GIVEN ORDERED.
--- NOTE | 2020-11-01 07:46 | NUR ---
placed into nasal cannula @ 4 lpm o2 flow. spo2 98% Addendum: 11/01/20 at 0750 by GUILLERMO ALBERTO RT Amended: Links added.
[2020-11-01] MEDS: BLOOD SUGAR DIAGNOSTIC 1 EACH STRIP IN SCH ×4 (07:58→22:11)
[2020-11-01] MEDS: DEXTROSE 50%-WATER 50 ML DISP.SYRIN IV PRN (07:58)
[2020-11-01 08:00] VITALS: BP 155/77
[2020-11-01] MEDS: glipiZIDE 10 MG TABLET PO SCH ×2 (08:00→17:05)
--- NOTE | 2020-11-01 08:54 | NUR ---
BLOOD SUGAR RECHECKED - 37 MG/DL. NOTIFIED. ORANGE JUICE GIVEN TO PATIENT.
--- NOTE | 2020-11-01 09:00 | NUR ---
PATIENT'S OXYGEN LEVEL DROPPED TO 87% ON 4L OXYGEN VIA NC. INCREASED TO 5L AND OXYGEN SATURATION WENT UP TO 96%. WILL CONTINUE TO MONITOR.
[2020-11-01] MEDS: AMLODIPINE BESYLATE 10 MG TABLET PO SCH (09:22)
[2020-11-01] MEDS: GABAPENTIN 100 MG CAPSULE PO SCH ×2 (09:22→17:05)
[2020-11-01] MEDS: DEXAMETHASONE SOD PHOSPHATE 4 MG/ML VIAL IV SCH (09:22)
[2020-11-01] MEDS: APIXABAN 2.5 MG TABLET PO SCH ×2 (09:23→20:46)
[2020-11-01] MEDS: DOCUSATE SODIUM 100 MG CAPSULE PO SCH ×2 (09:23→17:05)
[2020-11-01] MEDS: CHOLECALCIFEROL 1,000 UNIT TABLET (VIT D3) PO SCH (09:23)
[2020-11-01] MEDS: SERTRALINE HCL 25 MG TABLET PO SCH (09:23)
[2020-11-01] MEDS: TIMOLOL MAL/DORZOLAM HCL OPHTH 10 ML BOTTLE EACHEYE SCH ×2 (09:37→20:44)
[2020-11-01] MEDS: IPRATROPIUM/ALBUTEROL INHALER IH SCH ×3 (09:38→20:23)
--- NOTE | 2020-11-01 10:05 | NUR ---
GLUCOSE RECHECKED - 213 MG/DL WILL CONTINUE TO MONITOR PATIENT.
[2020-11-01 12:00] VITALS: BP 137/88
[2020-11-01 16:00] VITALS: BP 154/92
[2020-11-01] MEDS: INSULIN REGULAR, HUMAN 100 UNIT/ML 3 ML VIAL SQ PRN (17:09)
--- NOTE | 2020-11-01 19:20 | NUR ---
RN OPENING NOTE RECEIVED PATIENT IN BED RESTING ALERT ORIENTED X1-2 NONVERBAL ON 5L OXYGEN VIA NASAL CANNULA,O2:97% NO SOB NOT ACUTE DISTRESS NOTED,IV SITE IS ON RIGHT FOREARM INTACT PATENT,FLUSHED, INCONTINENT TO BOWEL/BLADDER,BED IN LOW POSITION AND LOCKED,BED ALARM IS ON,SAFETY MEASURE IMPLEMENT CONTINUE TO MONITOR.
--- NOTE | 2020-11-01 19:39 | NUR ---
RN CLOSING NOTE PATIENT RESTING IN BED. PATIENT IS ALERT AND ORIENTED X 1-2. NO SIGNS OF SOB OR RESPIRATORY DISTRESS NOTED. BREATHING IS EVEN AND UNLABORED. PATIENT CURRENTLY ON 5L O2 THERAPY VIA NASAL CANNULA. OXYGEN SATURATION 99%, TOLERATING DECREASED OXYGEN WELL. TELE READING SR. PATIENT IN NO SIGNS OF DISTRESS. PATIENT HAS NO IV ACCESS AT THIS TIME, AWAITING MIDLINE PLACEMENT. SAFETY MEASURES ARE IN PLACE, BED IS LOCKED AND PLACED IN THE LOW POSITION, SIDE RAILS UP X 3. HOB ELEVATED. CALL LIGHT IS WITHIN REACH. WILL ENDORSE TO BROADCAST METEOROLOGIST FOR FLEX.
[2020-11-01 20:00] VITALS: BP 145/87
[2020-11-01] MEDS ORDERED: LEVOFLOXACIN 500 MG /D5W 100ML 100 ML IV ONE (20:29)
[2020-11-01] MEDS: LEVOFLOXACIN 500 MG /D5W 100ML 500 MG in PREMIX 1 EA IV SCH (20:30)
[2020-11-01] MEDS: TAMSULOSIN 0.4 MG CAP.SR.24H PO SCH (21:14)
[2020-11-01] MEDS: FENOFIBRATE NANOCRYS (145 MG) 145 MG TABLET PO SCH (21:14)
[2020-11-01] MEDS: LATANOPROST EYE DROP 0.005% 2.5 ML BOTTLE OP SCH (21:17)
[2020-11-01] MEDS: INSULIN GLARGINE, 100 UNIT/ML CARTRIDGE SQ SCH (22:13)
[2020-11-02] VITALS: BP 138/91
[2020-11-02 04:00] VITALS: BP 147/84
--- NOTE | 2020-11-02 06:00 | NUR ---
RN NOTE PATIENT BS IS LOW 52 D50 GIVEN VIA IV CONTINUE TO MONITOR.
[2020-11-02] MEDS: DEXTROSE 50%-WATER 50 ML DISP.SYRIN IV PRN (06:03)
--- NOTE | 2020-11-02 06:30 | NUR ---
RN NOTE CHECKED BLOOD SUGAR 73 CONTINUE TO MONITOR
--- NOTE | 2020-11-02 07:17 | NUR ---
RN CLOSING NOTE PATIENT REMAINS ON ALERT ORIENTED X1 CONFUSED NONVERBAL,ON 5L OXYGEN VIA NASAL CANNULA,O2:98% ALL DUE MEDS GIVEN MD ORDERED KEPT CLEAN AND DRY ALL THE TIME,ENDORSE NEXT COMING SHIFT FOR CONTINUATION OF CARE.
--- NOTE | 2020-11-02 07:25 | NUR ---
RN OPENING NOTE PATIENT IN BED, SLEEPING. PATIENT IS ALERT AND ORIENTED X 1-2. NO SIGNS OF SOB OR RESPIRATORY DISTRESS NOTED. BREATHING IS EVEN AND UNLABORED. PATIENT CURRENTLY ON 5L O2 THERAPY VIA NASAL CANNULA. OXYGEN SATURATION 99%, TOLERATING DECREASED OXYGEN WELL. TELE READING SR. PATIENT IN NO SIGNS OF DISTRESS. PATIENT HAS NO IV ACCESS AT THIS TIME, AWAITING MIDLINE PLACEMENT. SAFETY MEASURES ARE IN PLACE, BED IS LOCKED AND PLACED IN THE LOW POSITION, SIDE RAILS UP X 3. HOB ELEVATED. CALL LIGHT IS WITHIN REACH. WILL CONTINUE TO MONITOR AND PROVIDE CARE.
[2020-11-02] MEDS: IPRATROPIUM/ALBUTEROL INHALER IH SCH ×4 (07:28→20:16)
[2020-11-02 07:42] LABS: BASOPHILS % (AUTO) 0.1 % (0.0-2.0); HEMATOCRIT 45 % (39-51); HEMOGLOBIN 14.8 g/dL (13.5-17.5); LYMPHOCYTES # (AUTO) 0.9 /CMM (0.8-4.8); LYMPHOCYTES % (AUTO) 7.7 % (20.0-44.0); MEAN CORPUSCULAR HGB CONC 33 g/dl (31.0-36.0); MEAN CORPUSCULAR VOLUME 87 fL (80-96); MONOCYTES # (AUTO) 1.1 /CMM (0.1-1.30); MONOCYTES % (AUTO) 9.3 % (2.0-12.0); NEUTROPHILS # (AUTO) 9.7 /CMM (1.8-8.9); NEUTROPHILS % (AUTO) 81.9 % (43.0-81.0); PLATELET COUNT (AUTO) 351 /CMM (150-450); RED BLOOD CELL COUNT(AUTO) 5.14 MIL/uL (4.5-6.0); WHITE BLOOD COUNT (AUTO) 11.8 K/uL (4.3-11.0)
[2020-11-02 07:54] LABS: CALCIUM, SERUM 8.8 mg/dL (8.5-10.1); CREATININE 1.2 mg/dL (0.6-1.3); MAGNESIUM 2.2 mg/dL (1.8-2.4); PHOSPHORUS 2.7 mg/dL (2.5-4.9); POTASSIUM 4.3 mmol/L (3.5-5.1)
[2020-11-02 08:00] VITALS: BP 138/75
--- NOTE | 2020-11-02 08:00 | NUR ---
AM INSULIN HELD DUE TO EARLIER EPISODE OF HYPOGLYCEMIA. WILL CONTINUE TO MONITOR PATIENT.
[2020-11-02] MEDS: TIMOLOL MAL/DORZOLAM HCL OPHTH 10 ML BOTTLE EACHEYE SCH ×2 (08:03→20:29)
[2020-11-02] MEDS: BLOOD SUGAR DIAGNOSTIC 1 EACH STRIP IN SCH ×4 (08:03→21:11)
[2020-11-02] MEDS: DEXAMETHASONE SOD PHOSPHATE 4 MG/ML VIAL IV SCH ×2 (09:00→09:06)
--- NOTE | 2020-11-02 09:00 | NUR ---
UNABLE TO GIVE 0900 IV MEDICATION DUE TO NO IV ACCESS. CURRENTLY AWAITING MIDLINE PLACEMENT.
[2020-11-02] MEDS: SERTRALINE HCL 25 MG TABLET PO SCH (09:05)
[2020-11-02] MEDS: CHOLECALCIFEROL 1,000 UNIT TABLET (VIT D3) PO SCH (09:05)
[2020-11-02] MEDS: AMLODIPINE BESYLATE 10 MG TABLET PO SCH (09:06)
[2020-11-02] MEDS: GABAPENTIN 100 MG CAPSULE PO SCH ×2 (09:06→16:39)
[2020-11-02] MEDS: DOCUSATE SODIUM 100 MG CAPSULE PO SCH ×2 (09:06→16:39)
[2020-11-02] MEDS: glipiZIDE 10 MG TABLET PO SCH ×2 (09:06→17:30)
[2020-11-02] MEDS: APIXABAN 2.5 MG TABLET PO SCH ×2 (09:07→21:06)
[2020-11-02] MEDS: INSULIN REGULAR, HUMAN 100 UNIT/ML 3 ML VIAL SQ PRN ×3 (11:37→21:13)
[2020-11-02 12:00] VITALS: BP 148/75
[2020-11-02 16:00] VITALS: BP 139/85
--- NOTE | 2020-11-02 18:00 | NUR ---
MIDLINE NURSE INSERTED RIGHT UPPER ARM MIDLINE 18G, INTACT AND PATENT. WILL RESUME IV FLUIDS ORDERED.
[2020-11-02] MEDS: IV 1/2NS 1000 ML 1,000 ML IV PRN (18:04)
--- NOTE | 2020-11-02 18:46 | NUR ---
RN CLOSING NOTE PATIENT IN BED, SLEEPING. PATIENT IS ALERT AND ORIENTED X 1-2. NO SIGNS OF SOB OR RESPIRATORY DISTRESS NOTED. BREATHING IS EVEN AND UNLABORED. PATIENT CURRENTLY ON 4L O2 THERAPY VIA NASAL CANNULA. OXYGEN SATURATION 100%, TOLERATING DECREASED OXYGEN WELL. TELE READING SR. PATIENT IN NO SIGNS OF DISTRESS. PATIENT HAS R UPPER ARM MIDLINE 18G, INTACT AND PATENT. IV FLUIDS CURRENTLY RUNNIN/2 NS @125 ML/HR ORDERED. SAFETY MEASURES ARE IN PLACE, BED IS LOCKED AND PLACED IN THE LOW POSITION, SIDE RAILS UP X 3. HOB ELEVATED. CALL LIGHT IS WITHIN REACH. WILL ENDORSE TO RESOURCE CENTER TEACHER FOR FLEX.
--- NOTE | 2020-11-02 19:00 | NUR ---
TELE/RN CLOSING NOTES: RECEIVED PATIENT IN BED, SLEEPING AT THIS TIME. ALERT AND ORIENTED X 1-2. NO SIGNS OF SOB OR RESPIRATORY DISTRESS NOTED. BREATHING EVEN AND UNLABORED. CURRENTLY ON 4L O2 VIA NASAL CANNULA. OXYGEN SATURATION 94%. TELE READING SR. IN NO SIGNS OF DISTRESS. NOTED WITH R UPPER ARM MIDLINE 18G, INTACT AND PATENT. 1/2 NS RUNNING @125 ML/HR ORDERED. SAFETY MEASURES ARE IN PLACE, BED IS LOCKED AND PLACED IN THE LOW POSITION, SIDE RAILS UP X 3. HOB ELEVATED. CALL LIGHT IS WITHIN REACH. WILL CONTINUE TO MONITOR. Addendum: 11/03/20 at 0515 by NIKIA GARDINER RN TELE/RN OPENING NOTES
[2020-11-02 20:00] VITALS: BP 151/83
[2020-11-02] MEDS: LEVOFLOXACIN 500 MG /D5W 100ML 500 MG in PREMIX 1 EA IV SCH (20:15)
[2020-11-02] MEDS: FENOFIBRATE NANOCRYS (145 MG) 145 MG TABLET PO SCH (21:06)
[2020-11-02] MEDS: TAMSULOSIN 0.4 MG CAP.SR.24H PO SCH (21:06)
[2020-11-02] MEDS: INSULIN GLARGINE, 100 UNIT/ML CARTRIDGE SQ SCH (21:14)
[2020-11-02] MEDS: LATANOPROST EYE DROP 0.005% 2.5 ML BOTTLE OP SCH (21:15)
[2020-11-03] VITALS: BP 136/81
[2020-11-03] MEDS: IPRATROPIUM/ALBUTEROL INHALER IH SCH ×2 (01:52→20:30)
[2020-11-03 04:00] VITALS: BP 138/83
[2020-11-03] MEDS: IV 1/2NS 1000 ML 1,000 ML IV PRN ×2 (04:45→16:16)
--- NOTE | 2020-11-03 04:50 | NUR ---
TELE/RN NOTES: TITRATED OXYGEN TO 2L VIA NC. PT TOLERATING AND SATURATING AT 98%. STABLE AT THIS TIME.
--- NOTE | 2020-11-03 05:14 | NUR ---
TELE/RN OPENING NOTES
--- NOTE | 2020-11-03 06:00 | NUR ---
TELE/RN NOTES: PT. NOTED WITH DISCOLORATION ON HIS RIGHT INDEX FINGER. REPORTED TO CHARGE NURSE RA AND DR. RAMÍREZ. PT IS A/OX2, STABLE NO COMPLAINS OF PAIN. NO NEW ORDERS AT THIS TIME. PICTURE TAKEN AND DOCUMENTED IN THE CHART.
[2020-11-03 06:06] LABS: CALCIUM, SERUM 8.5 mg/dL (8.5-10.1); CARBON DIOXIDE 28 mmol/L (21-32); CHLORIDE 102 mmol/L (98-107); CREATININE 0.8 mg/dL (0.6-1.3); GLUCOSE 81 mg/dL (74-106); MAGNESIUM 1.9 mg/dL (1.8-2.4); PHOSPHORUS 2.5 mg/dL (2.5-4.9); POTASSIUM 4.1 mmol/L (3.5-5.1); SODIUM SERUM 137 mmol/L (136-145); UREA NITROGEN, BLOOD 21 mg/dL (7-18)
[2020-11-03 06:09] LABS: BASOPHILS % (AUTO) 0.3 % (0.0-2.0); EOSINOPHILS % (AUTO) 0.5 % (0.0-6.0); HEMATOCRIT 40 % (39-51); HEMOGLOBIN 13.2 g/dL (13.5-17.5); LYMPHOCYTES # (AUTO) 0.9 /CMM (0.8-4.8); LYMPHOCYTES % (AUTO) 5.9 % (20.0-44.0); MEAN CORPUSCULAR HGB CONC 33 g/dl (31.0-36.0); MEAN CORPUSCULAR VOLUME 87 fL (80-96); MONOCYTES # (AUTO) 1.2 /CMM (0.1-1.30); MONOCYTES % (AUTO) 8.2 % (2.0-12.0); NEUTROPHILS # (AUTO) 12.3 /CMM (1.8-8.9); NEUTROPHILS % (AUTO) 85.1 % (43.0-81.0); PLATELET COUNT (AUTO) 292 /CMM (150-450); RED BLOOD CELL COUNT(AUTO) 4.57 MIL/uL (4.5-6.0); WHITE BLOOD COUNT (AUTO) 14.5 K/uL (4.3-11.0)
--- NOTE | 2020-11-03 06:54 | NUR ---
TELE/RN CLOSING NOTES: PATIENT REMAINS ON BED, SLEEPING COMFORTABLY. KEPT WARM AND DRY AT ALL TIMES. ALERT AND ORIENTED X 2. SPEAKS [place]. UNDERSTANDS AND ABLE TO COMMUNICATE IN [place]. NO SIGNS OF SOB OR RESPIRATORY DISTRESS NOTED. BREATHING EVEN AND UNLABORED. CURRENTLY ON 2L O2 VIA NASAL CANNULA. OXYGEN SATURATION 100%. TELE READING SR. IN NO SIGNS OF DISTRESS. NOTED WITH R UPPER ARM MIDLINE 18G, INTACT AND PATENT. 1/2 NS RUNNING @125 ML/HR ORDERED. SAFETY MEASURES ARE IN PLACE, BED IS LOCKED AND PLACED IN THE LOW POSITION, SIDE RAILS UP X 3. HOB ELEVATED. CALL LIGHT IS WITHIN REACH. WILL ENDORSE TO DAY SHIFT FOR FLEX.
--- NOTE | 2020-11-03 07:20 | NUR ---
PT ASLEEP IN BED BUT AROUSABLE W VERBAL STIMULI. 2L MIN NC RUNNING ORDERED AND TOLERATING WELL W NO SIGNS OF DISTRESS. SKIN WARM FLUSHED. A/O X2. SR ON TELE. TRICIA MIDLINE FLUSHED AND INTACT. DRESSING DRY AND INTACT. DISCOLORATION IN R INDEX FINGER NOTED AND MD AWARE. WILL CONTINUE TO MONITOR. WILL MONITOR VS, RESP STATUS, LABS, AND REPORT TO MD NEEDED. RAILS UPX2, HOB ELEVATED. BED LOW AND LOCKED, CALL LIGHT IN REACH. ALL HOSPITAL POLICY SAFETY PRECAUTIONS IMPLEMENTED. WILL ASSIST W TURNING Q2H.
[2020-11-03 08:00] VITALS: BP 155/77
[2020-11-03] MEDS: glipiZIDE 10 MG TABLET PO SCH ×2 (08:37→17:27)
[2020-11-03] MEDS: SERTRALINE HCL 25 MG TABLET PO SCH (08:37)
[2020-11-03] MEDS: GABAPENTIN 100 MG CAPSULE PO SCH ×2 (08:37→17:27)
[2020-11-03] MEDS: CHOLECALCIFEROL 1,000 UNIT TABLET (VIT D3) PO SCH (08:37)
[2020-11-03] MEDS: DOCUSATE SODIUM 100 MG CAPSULE PO SCH ×2 (08:37→17:29)
[2020-11-03] MEDS: APIXABAN 2.5 MG TABLET PO SCH ×2 (08:39→21:14)
[2020-11-03] MEDS: DEXAMETHASONE SOD PHOSPHATE 4 MG/ML VIAL IV SCH (08:40)
[2020-11-03] MEDS: AMLODIPINE BESYLATE 10 MG TABLET PO SCH (08:40)
[2020-11-03] MEDS: TIMOLOL MAL/DORZOLAM HCL OPHTH 10 ML BOTTLE EACHEYE SCH ×2 (08:41→21:14)
[2020-11-03] MEDS: BLOOD SUGAR DIAGNOSTIC 1 EACH STRIP IN SCH ×4 (11:53→21:16)
[2020-11-03 12:00] VITALS: BP 137/88
[2020-11-03] MEDS: INSULIN REGULAR, HUMAN 100 UNIT/ML 3 ML VIAL SQ PRN ×2 (13:06→17:38)
[2020-11-03 16:00] VITALS: BP 139/83
--- NOTE | 2020-11-03 18:45 | NUR ---
Patient was AOx3. Can not move without assistance. Skin is warm and in tact continue to monitor for skin breakdown. Patient is on 4L NC. 2 lumens of PICC line were occluded. Nieto was assessed and still needed. Bed was placed at semi fowlers and lowest possible position. Continue to monitor vital signs and titrate off of O2.
--- NOTE | 2020-11-03 18:52 | NUR ---
Patient is AOx2. Normal Sinus Rhythm. Blood Glucose remains around 200. Skin intact and warm to touch. Monitor for skin breakdown due to incontinence. Addendum: 11/03/20 at 1923 by VICKI VEGA RN All lines are patent and intact. Bed is at Semi Fowlers and at lowest position. Patient is at risk for skin breakdown due to immobility as well. Vital signs are normal. Breathing pattern normal. Bowel movements were not present.
--- NOTE | 2020-11-03 19:15 | NUR ---
RN OPENING NOTES Received patient, asleep on bed. No s/sx of discomfort noted at this time. On O2 via NC @ 2LPM, saturating well, no respiratory distress noted. On tele monitor with NSR noted. Kept on bed clean, dry and comfortable. On fall and aspiration precautions. Will continue to monitor accordingly.
--- NOTE | 2020-11-03 19:37 | NUR ---
TURNED Q2H AND REPOSITIONED AND ELEVATED EXTREMITIES.
[2020-11-03] MEDS: LEVOFLOXACIN 500 MG /D5W 100ML 500 MG in PREMIX 1 EA IV SCH (20:24)
[2020-11-03] MEDS: TAMSULOSIN 0.4 MG CAP.SR.24H PO SCH (21:16)
[2020-11-03] MEDS: FENOFIBRATE NANOCRYS (145 MG) 145 MG TABLET PO SCH (21:16)
[2020-11-03] MEDS: LATANOPROST EYE DROP 0.005% 2.5 ML BOTTLE OP SCH (21:16)
[2020-11-03] MEDS: INSULIN GLARGINE, 100 UNIT/ML CARTRIDGE SQ SCH (22:10)
[2020-11-04] MEDS: IPRATROPIUM/ALBUTEROL INHALER IH SCH ×2 (01:35→20:21)
[2020-11-04 05:59] LABS: CALCIUM, SERUM 8.1 mg/dL (8.5-10.1); CREATININE 0.9 mg/dL (0.6-1.3); PHOSPHORUS 3.2 mg/dL (2.5-4.9); POTASSIUM 4.2 mmol/L (3.5-5.1)
[2020-11-04 06:14] LABS: BASOPHILS # (AUTO) 0.1 /CMM (0.0-0.2); BASOPHILS % (AUTO) 0.7 % (0.0-2.0); EOSINOPHILS % (AUTO) 0.6 % (0.0-6.0); HEMATOCRIT 38 % (39-51); HEMOGLOBIN 12.7 g/dL (13.5-17.5); LYMPHOCYTES # (AUTO) 1.4 /CMM (0.8-4.8); LYMPHOCYTES % (AUTO) 10.1 % (20.0-44.0); MEAN CORPUSCULAR HGB CONC 34 g/dl (31.0-36.0); MEAN CORPUSCULAR VOLUME 86 fL (80-96); MONOCYTES # (AUTO) 1.2 /CMM (0.1-1.30); MONOCYTES % (AUTO) 8.2 % (2.0-12.0); NEUTROPHILS # (AUTO) 11.3 /CMM (1.8-8.9); NEUTROPHILS % (AUTO) 80.4 % (43.0-81.0); PLATELET COUNT (AUTO) 272 /CMM (150-450); RED BLOOD CELL COUNT(AUTO) 4.41 MIL/uL (4.5-6.0)
--- NOTE | 2020-11-04 06:38 | NUR ---
RN CLOSING NOTES Pt asleep on bed. No new unusualities noted. Afebrile the whole shift. No new complaints made. All nursing needs attended, due meds given as ordered. Kept on bed clean, dry and comfortable. Endorsed.
[2020-11-04] MEDS: BLOOD SUGAR DIAGNOSTIC 1 EACH STRIP IN SCH ×4 (07:30→22:20)
[2020-11-04] MEDS: APIXABAN 2.5 MG TABLET PO SCH ×2 (09:05→22:00)
[2020-11-04] MEDS: CHOLECALCIFEROL 1,000 UNIT TABLET (VIT D3) PO SCH (09:05)
[2020-11-04] MEDS: glipiZIDE 10 MG TABLET PO SCH ×2 (09:06→17:47)
[2020-11-04] MEDS: GABAPENTIN 100 MG CAPSULE PO SCH ×2 (09:06→17:47)
[2020-11-04] MEDS: DOCUSATE SODIUM 100 MG CAPSULE PO SCH ×2 (09:06→17:47)
[2020-11-04] MEDS: AMLODIPINE BESYLATE 10 MG TABLET PO SCH (09:09)
[2020-11-04] MEDS: SERTRALINE HCL 25 MG TABLET PO SCH (09:10)
[2020-11-04] MEDS: INSULIN REGULAR, HUMAN 100 UNIT/ML 3 ML VIAL SQ PRN (12:40)
[2020-11-04] MEDS: IV 1/2NS 1000 ML 1,000 ML IV PRN (12:51)
[2020-11-04] MEDS: TIMOLOL MAL/DORZOLAM HCL OPHTH 10 ML BOTTLE EACHEYE SCH ×2 (14:10→22:01)
--- NOTE | 2020-11-04 18:56 | NUR ---
CHANGE OF SHIFT REPORT PT RESTING COMFORTABLY IN BED. NO S/S OR C/O PAIN OR DISTRESS NOTED. SIDE RAILS UP X2, CALL LIGHT LEFT WITHIN REACH. PT KEPT CLEAN, DRY, AND COMFORTABLE. PT COMPLIANT WITH MEDICATIONS. PT CALM AND COOPERATIVE. VITAL SIGNS WNL. NO SIGNIFICANT CHANGES SINCE PREVIOUS SHIFT. WILL GIVE REPORT TO SALUD WE[facility].
--- NOTE | 2020-11-04 19:40 | NUR ---
INDUSTRIAL RELATIONS COMMISSIONER OPENING NOTES PATIENT AWAKE IN BED. A/OX2-3. ON RA; NO S/S OF ACUTE RESPIRATORY DISTRESS; BREATHING IS EVEN AND UNLABORED; CONTINUOUS PULSE OX READING 93%. NO C/O PAIN. TELE MONITOR READING SINUS RHYTHM. MIDLINE PRESENT ON RIGHT UPPER ARM WITH 1/2 NS RUNNING AT 125 ML/HR. SAFETY MEASURES IN PLACE AND PATIENT'S NEEDS MET. BED LOCKED, HOB ELEVATED, SIDE RAILS X3, CALL LIGHT WITHIN REACH. WILL CONTINUE TO MONITOR.
[2020-11-04 20:00] VITALS: BP 138/72
[2020-11-04] MEDS: LEVOFLOXACIN 500 MG /D5W 100ML 500 MG in PREMIX 1 EA IV SCH (20:09)
[2020-11-04] MEDS: TAMSULOSIN 0.4 MG CAP.SR.24H PO SCH (21:55)
[2020-11-04] MEDS: FENOFIBRATE NANOCRYS (145 MG) 145 MG TABLET PO SCH (21:55)
[2020-11-04] MEDS: LATANOPROST EYE DROP 0.005% 2.5 ML BOTTLE OP SCH (22:01)
[2020-11-04] MEDS: *INSULIN REGULAR(HUMULIN R)HUM 100 UNIT/ML VIAL SQ PRN (22:25)
[2020-11-04] MEDS: INSULIN GLARGINE, 100 UNIT/ML CARTRIDGE SQ SCH (22:26)
[2020-11-05] VITALS: BP 134/80
[2020-11-05] MEDS: IPRATROPIUM/ALBUTEROL INHALER IH SCH (01:59)
[2020-11-05 04:00] VITALS: BP 139/76
[2020-11-05] MEDS: IV 1/2NS 1000 ML 1,000 ML IV PRN (04:12)
[2020-11-05 06:15] LABS: CALCIUM, SERUM 8.7 mg/dL (8.5-10.1); CREATININE 1.1 mg/dL (0.6-1.3); MAGNESIUM 1.9 mg/dL (1.8-2.4); PHOSPHORUS 3.2 mg/dL (2.5-4.9); POTASSIUM 3.7 mmol/L (3.5-5.1)
[2020-11-05 06:21] LABS: BASOPHILS % (AUTO) 0.3 % (0.0-2.0); EOSINOPHILS % (AUTO) 0.9 % (0.0-6.0); HEMATOCRIT 40 % (39-51); HEMOGLOBIN 13.4 g/dL (13.5-17.5); LYMPHOCYTES # (AUTO) 1.1 /CMM (0.8-4.8); LYMPHOCYTES % (AUTO) 7.4 % (20.0-44.0); MEAN CORPUSCULAR HGB CONC 33 g/dl (31.0-36.0); MEAN CORPUSCULAR VOLUME 86 fL (80-96); MONOCYTES # (AUTO) 1.4 /CMM (0.1-1.30); MONOCYTES % (AUTO) 9.1 % (2.0-12.0); NEUTROPHILS # (AUTO) 12.2 /CMM (1.8-8.9); NEUTROPHILS % (AUTO) 82.3 % (43.0-81.0); PLATELET COUNT (AUTO) 299 /CMM (150-450); RED BLOOD CELL COUNT(AUTO) 4.71 MIL/uL (4.5-6.0); WHITE BLOOD COUNT (AUTO) 14.8 K/uL (4.3-11.0)
[2020-11-05] MEDS: BLOOD SUGAR DIAGNOSTIC 1 EACH STRIP IN SCH ×2 (06:30→12:30)
--- NOTE | 2020-11-05 07:01 | NUR ---
FIELD SUPERVISOR SEED PRODUCTION CLOSING NOTES PATIENT SLEEPING. A/OX2-3. ON RA; NO S/S OF ACUTE RESPIRATORY DISTRESS; BREATHING IS EVEN AND UNLABORED; CONTINUOUS PULSE OX READING 95%. NO S/S OF PAIN NOTED. TELE MONITOR READING SINUS RHYTHM. MIDLINE PRESENT ON RIGHT UPPER ARM WITH 1/2 NS RUNNING AT 125 ML/HR. SAFETY MEASURES IN PLACE AND PATIENT'S NEEDS MET. BED LOCKED, HOB ELEVATED, SIDE RAILS X3, CALL LIGHT WITHIN REACH. WILL ENDORSE TO DAY SHIFT RN PLAN OF CARE.
[2020-11-05] MEDS: TIMOLOL MAL/DORZOLAM HCL OPHTH 10 ML BOTTLE EACHEYE SCH (09:00)
[2020-11-05] MEDS: GABAPENTIN 100 MG CAPSULE PO SCH (10:10)
[2020-11-05] MEDS: glipiZIDE 10 MG TABLET PO SCH (10:10)
[2020-11-05] MEDS: DOCUSATE SODIUM 100 MG CAPSULE PO SCH (10:10)
[2020-11-05 10:11] VITALS: BP 162/92
[2020-11-05] MEDS: CHOLECALCIFEROL 1,000 UNIT TABLET (VIT D3) PO SCH (10:11)
[2020-11-05] MEDS: SERTRALINE HCL 25 MG TABLET PO SCH (10:11)
[2020-11-05] MEDS: AMLODIPINE BESYLATE 10 MG TABLET PO SCH (10:11)
[2020-11-05] MEDS: APIXABAN 2.5 MG TABLET PO SCH (10:12)
[2020-11-05] MEDS ORDERED: LEVO500T90 PO (11:26)
[2020-11-05] MEDS ORDERED: APIX2.5T PO (11:26)
[2020-11-05] MEDS: INSULIN REGULAR, HUMAN 100 UNIT/ML 3 ML VIAL SQ PRN (12:32)
--- NOTE | 2020-11-05 15:23 | NUR ---
DISCHARGE NOTES RECEIVED DISCHARGE ORDER FROM DR. CUEVAS. PT IN STABLE CONDITION FOR DISCHARGE TO SNF. PT AND FAMILY NOTIFIED, AWARE AND VERBALIZED UNDERSTANDING. MEDICATIONS, DISCHARGE INSTRUCTIONS AND EDUCATION PROVIDED TO PATIENT. SKIN CHECK DONE, SKIN INTACT. PICTURES OF RT HAND BRUISING TAKEN. TRICIA MIDLINE D/C, NO FC IN PLACE. BELONGING CHECKED. SPOKE WITH GEETA AT [facility] [phone] REPORT WAS GIVEN. PT WAS PICKED UIP BY [facility] AND TAKEN VIA GURNEY. PT WAS DISCHARGED IN STABLE CONDITION.
== END 2020-11-05 15:24 | DRG 871 ==
LOC: ER 12:01 → TELE1 20:31
PROVIDERS: ATTEND Student in an Organized Health Care Education/Training Program
DX: A41.89 Other specified sepsis (principal); U07.1 COVID-19; J96.01 Acute respiratory failure with hypoxia; J12.89 Other viral pneumonia; N17.0 Acute kidney failure with tubular necrosis; J44.0 Chronic obstructive pulmonary disease with (acute) lower respiratory infection; E87.0 Hyperosmolality and hypernatremia; E87.1 Hypo-osmolality and hyponatremia; N18.9 Chronic kidney disease, unspecified; I12.9 Hypertensive chronic kidney disease with stage 1 through stage 4 chronic kidney disease, or unspecified chronic kidney disease; Z88.8 Allergy status to other drugs, medicaments and biological substances; Z79.4 Long term (current) use of insulin; Z79.899 Other long term (current) drug therapy; F09 Unspecified mental disorder due to known physiological condition; N40.0 Benign prostatic hyperplasia without lower urinary tract symptoms; H40.9 Unspecified glaucoma; F03.90 Unspecified dementia, unspecified severity, without behavioral disturbance, psychotic disturbance, mood disturbance, and anxiety; H70.90 Unspecified mastoiditis, unspecified ear; E78.5 Hyperlipidemia, unspecified; E86.1 Hypovolemia; E11.22 Type 2 diabetes mellitus with diabetic chronic kidney disease; E11.65 Type 2 diabetes mellitus with hyperglycemia; I67.2 Cerebral atherosclerosis; I70.0 Atherosclerosis of aorta; R13.10 Dysphagia, unspecified; Z87.891 Personal history of nicotine dependence; T38.0X5A Adverse effect of glucocorticoids and synthetic analogues, initial encounter; Y92.9 Unspecified place or not applicable; R20.2 Paresthesia of skin
CPT/HCPCS: 36415; 36600; 70450-TC; 71045-TC; 80048-TC; 80053-TC; 80061-TC; 81001; 82550-TC; 82728-TC; 82803-TC; 82962-TC; 83605-TC; 83615-TC; 83735-TC; 83880; 84100-TC; 84443-TC; 84484-TC; 85025-TC; 85378-TC; 85385-TC; 85730-TC; 86140-TC; 87040-TC; 92521; 92526; 93307-TC; 94760-TC; 94762-TC; 94799-TC; A4216; G0378; J0360; J0456; J0692; J1100; J1815; J1956; J2543; J3490; J7030; J7050; J7060; U0003